=== PATIENT | male | born 1970 | race Caucasian/White ===

== ENCOUNTER 2016-06-19 23:19 | Emergency (ER) | payer SELFPAY ==
[~2016-06-19] VITALS: Ht 180.3 cm; Wt 105.0 kg
[2016-06-19 23:21] VITALS: BP 179/99; PULSE 98; RESP 16; TEMP 98.1; O2SAT 96
[2016-06-20] MEDS ORDERED: MEDR4PAK PO
[2016-06-20] MEDS ORDERED: DEXAMETHASONE SOD PHOS 4 MG/ML VIAL IM ONE
--- NOTE | 2016-06-20 | PD ---
HPI Chief Complaint: Pain: Acute or Chronic Time Seen by Provider: 23:55 Travel History International Travel<30 days: No Contact w/Intl Traveler<30days: No Traveled to known affect area: No History of Present Illness HPI Patient comes in complaining of flareup of chronic pain. Patient states that he normally has pain in his back, neck, and feet was told he has neuropathy. Patient states he is on gabapentin, Lortab, and Valium for this. Patient states approximately 2 hours ago started having a burning sensation in his right lower back and radiates down his leg is different from his normal pain. Patient denies any fevers, IV drug use, trauma, loss of bowel or bladder, or new numbness or tingling anywhere. Patient states he is supposed to see his pain management doctor on Tuesday who is going to switch him to a long-acting pain medication. Patient is requesting Lyrica as he states he's had that before and that seemed to help better than anything else. Patient does report that he applied ice prior to coming emergency department with little to no improvement of his symptoms. Pain is worse with certain movement. PFSH Past Medical History Cardiovascular Problems: Yes ([place]) Musculoskeletal: Yes (back pain) Neurologic: Yes (neuropathy) Social History Alcohol Use: No Tobacco Use: No Substance Use: No Allergies-Medications (Allergen,Severity, Reaction): Coded Allergies: Erythromycin (Verified Allergy, Severe, 06/19/16) Ibuprofen (Verified Allergy, Severe, 06/19/16) Midrin (Verified Allergy, Severe, 06/19/16) Norflex (Verified Allergy, Severe, 06/19/16) Valium (Verified Allergy, Unknown, 06/19/16) Reported Meds & Prescriptions Reported Meds & Active Scripts Active Medrol Dosepak (Methylprednisolone) 4 Mg Dspk 4 Mg PO DIRECTED Per Pharmacist direction Review of Systems Except as stated in HPI: all other systems reviewed are Neg Physical Exam Narrative GENERAL: Well-developed, overly nourished, in no acute distress, and non-ill appearing. SKIN: Warm and dry. HEAD: Atraumatic. Normocephalic. EYES: Pupils equal and round. EOMI. No scleral icterus. No injection or drainage. ENT: No nasal bleeding or discharge. Mucous membranes pink and moist. NECK: Trachea midline. Supple. No nuclear rigidity. CARDIOVASCULAR: Dorsal pulses 2+ intact and equal bilaterally. Capillary refill less than 2 seconds. RESPIRATORY: No accessory muscle use. No respiratory distress. GASTROINTESTINAL: Abdomen soft, non-tender, nondistended. Hepatic and splenic margins not palpable. No pulsatile mass. MUSCULOSKELETAL: No obvious deformities. No clubbing. No cyanosis. No edema. Full range of motion. There is no tenderness crepitus over midline of the lumbar spine. Patient reports tenderness to palpation near the right SI joint. Straight leg test negative bilaterally. Hip: FROM and equal BL with passive flexion, extension, Abduction, Adduction, and internal/external rotation. Pulses equal BL distal to injury. Capillary refill less than 2 seconds distal to injury and equal BL. FROM distal to injury and equal BL. Strength distal to injury equal BL. NV intact distal to injury and equal BL. Plantar flexion and dorsal flexion equal BL. Dorsal pulses equal BL. NEUROLOGICAL: Awake and alert. No obvious cranial nerve deficits. Motor grossly within normal limits. Normal speech. PSYCHIATRIC: Appropriate mood and affect; insight and judgment normal. Data Data Last Documented VS Vital Signs Date Time Temp Pulse Resp B/P Pulse Ox O2 Delivery O2 Flow Rate FiO2 06/19/16 23:21 98.1 98 16 179/99 96 Room Air Orders Dexamethasone Inj (Decadron Inj) (06/20/16 00:00) Ketorolac Inj (Toradol Inj) (06/20/16 00:45) MDM Medical Decision Making Medical Screen Exam Complete: Yes Emergency Medical Condition: Yes Differential Diagnosis Acute on chronic back pain, sciatica, neuropathy, contusion, strain, fracture, other Narrative Course The patient presented complaining of back pain with radiation down leg. There was no history of recent fall or trauma. There was no evidence to support genitourinary etiology. There is also no evidence to suggest vascular pathology such as AAA dissection. No fevers or other evidence to suspect infectious processes, abscess, osteomyelitis etc. The patients neurological exam is normal with normal motor and sensory. There is no saddle paresthesias reported and no bowel or bladder incontinence or retention. I suspect the pain is mechanical in nature with sciatica. Clinical suspicion, plan of care and management was discussed with the patient. The patient was instructed to follow up with their health care provider. The patient was also instructed to return if the pain worsened, changed, or developed weakness or bowel or bladder trouble. The patient agreed with plan. Patient in no obvious distress upon re-evaluation. Prior to discharge patient requested a shot of Toradol. Patient was given a shot of Toradol. Patient was asked if they wanted to speak to my attending, which the patient did not wish to do at this time. Any questions/concerns in reference to patient diagnosis/ condition discussed and clarified prior to patient's discharge. Reinforced sheer importance of close follow up with patient's primary physician or primary care clinic. Instructed patient to return to ED immediately, if symptoms return/ worsen. Pt showed understanding of above instructions. Further instructions and recommendations were detailed in discharge paperwork. Pt ambulated without difficulty out of ED at discharge. Diagnosis Primary Impression: Sciatica of right side Patient Instructions: General Instructions, Sciatica (ED) Additional Instructions: Follow-up with your primary care physician and pain management doctor this week for reevaluation. Take all medication as prescribed. Return to the emergency department if symptoms get worse. Med/Other Pt SpecificInfo: Prescription(s) given Scripts Methylprednisolone Dosepak (Medrol Dosepak)4 Mg Dspk4 Mg PO DIRECTED #1 DSPK Ref 0 Per Pharmacist direction Prov:Jacob Samuels MD 06/20/16 Disposition: 01 DISCHARGE HOME Condition: Stable Asif Lopez Jun 20, 2016 00:00
[2016-06-20] MEDS ORDERED: KETOROLAC TROMETHAMINE 60 MG/2 ML (IM) VIAL IM ONE (00:45)
== END 2016-06-20 01:00 | disposition home or self-care (01) ==
LOC: NEPB 23:19
DX: M54.31 Sciatica, right side (principal); G89.29 Other chronic pain; M54.9 Dorsalgia, unspecified; G62.9 Polyneuropathy, unspecified
CPT/HCPCS: 96372; 99283; J1100; J1885

== ENCOUNTER 2016-07-16 01:30 | Emergency (ER) | payer SELFPAY ==
[~2016-07-16] VITALS: Ht 180.3 cm; Wt 102.0 kg
[~2016-07-16 01:30] MED LIST: MEDR4PAK PO
[2016-07-16 01:32] VITALS: BP 165/100; PULSE 93; RESP 16; TEMP 98.6; O2SAT 98
[2016-07-16] MEDS ORDERED: LYRI150C PO (01:58)
--- NOTE | 2016-07-16 02:03 | PD ---
HPI Chief Complaint: Pain: Acute or Chronic Time Seen by Provider: 01:50 Travel History International Travel<30 days: No Contact w/Intl Traveler<30days: No Traveled to known affect area: No History of Present Illness HPI 45-year-old male presents for evaluation of lower back pain. He reports a history of chronic lower back pain with sciatica symptoms. He reports occasional flareups of this pain. He reports that today he was unloading a [employer] truck and now he has increased pain in his left lower buttocks that radiates down the left leg. It is a sharp shooting pain that is worse with movement. Denies any abdominal pain, nausea or vomiting, flank pain, testicular or scrotal pain, bowel or bladder incontinence, saddle anesthesia. Previously the patient was seeing a pain management physician, Dr. Kirby, and most recently was on a regimen of gabapentin, hydrocodone acetaminophen and diazepam however he reports that he was let go from his care last month. He reports that in the past he has used Lyrica which seemed to be the most effective thing for this sort of pain. He has no other complaints. PFSH Past Medical History Hx Anticoagulant Therapy: Yes ([place]) Cardiovascular Problems: Yes ([place]) Diminished Hearing: No Musculoskeletal: Yes (back pain) Neurologic: Yes (neuropathy) Social History Alcohol Use: No Tobacco Use: No Substance Use: No Allergies-Medications (Allergen,Severity, Reaction): Coded Allergies: Erythromycin (Verified Allergy, Severe, 07/16/16) Ibuprofen (Verified Allergy, Severe, 07/16/16) Midrin (Verified Allergy, Severe, 07/16/16) Norflex (Verified Allergy, Severe, 07/16/16) Flexeril (Verified Allergy, Intermediate, PASS OUT, 07/16/16) Valium (Verified Allergy, Unknown, 07/16/16) Reported Meds & Prescriptions Reported Meds & Active Scripts Active Lyrica (Pregabalin) 150 Mg Cap 150 Mg PO BID 7 Days Medrol Dosepak (Methylprednisolone) 4 Mg Dspk 4 Mg PO DIRECTED Per Pharmacist direction Review of Systems Except as stated in HPI: all other systems reviewed are Neg Physical Exam Narrative GENERAL: Well-developed well-nourished male in no acute distress SKIN: Warm and dry. HEAD: Atraumatic. Normocephalic. EYES: Pupils equal and round. No scleral icterus. No injection or drainage. ENT: No nasal bleeding or discharge. Mucous membranes pink and moist. NECK: Trachea midline. No JVD. CARDIOVASCULAR: Regular rate and rhythm. No murmur appreciated. RESPIRATORY: No accessory muscle use. Clear to auscultation. Breath sounds equal bilaterally. GASTROINTESTINAL: Abdomen soft, non-tender, nondistended. Hepatic and splenic margins not palpable. MUSCULOSKELETAL: No obvious deformities. No tenderness to palpation along the thoracic or lumbar midline spine. Some tenderness to palpation to the left sacroiliac joint. Positive straight leg raise left leg. No lower extremity edema, distal pulses intact. NEUROLOGICAL: Awake and alert. No obvious cranial nerve deficits. Motor grossly within normal limits. Normal speech. Data Data Last Documented VS Vital Signs Date Time Temp Pulse Resp B/P Pulse Ox O2 Delivery O2 Flow Rate FiO2 07/16/16 02:00 14 07/16/16 01:32 98.6 93 165/100 98 Room Air MDM Medical Decision Making Medical Screen Exam Complete: Yes Emergency Medical Condition: Yes Medical Record Reviewed: Yes Differential Diagnosis Peripheral neuropathy, lumbar radiculopathy, piriformis syndrome, plexopathy, DVT, arterial occlusion, peripheral vascular disease Narrative Course 45-year-old male with chronic lower back pain with sciatic symptoms presents with an acute exacerbation after unloading a [employer] truck. Examination reveals no lower extremity weakness, history and examination are consistent with chronic lumbosacral radiculopathy. He reports that one time he was prescribed Lyrica which seemed to help more than any other type of medication for this sort of pain and so he'll be given a seven-day course of Lyrica and encouraged to establish care with a new dip painter. Diagnosis Primary Impression: Lumbosacral radiculopathy Additional Instructions: Follow-up with pain management. Avoid strenuous activity or heavy lifting. Return for any emergent medical conditions. Med/Other Pt SpecificInfo: Prescription(s) given Scripts Pregabalin (Lyrica)150 Mg [id number] Mg PO BID 7 Days Ref 0 Prov:Chirag Vo MD 07/16/16 Disposition: 01 DISCHARGE HOME Condition: Stable Jaylen Kurtz Jul 16, 2016 02:03
[2016-07-16] MEDS ORDERED: PREGABALIN 100 MG CAP PO ONE (02:15)
== END 2016-07-16 02:23 | disposition home or self-care (01) ==
LOC: NEPK 01:30
DX: M54.17 Radiculopathy, lumbosacral region (principal); I10 Essential (primary) hypertension; Z79.82 Long term (current) use of aspirin; Z87.39 Personal history of other diseases of the musculoskeletal system and connective tissue; Z86.69 Personal history of other diseases of the nervous system and sense organs; X50.0XXA Overexertion from strenuous movement or load, initial encounter
CPT/HCPCS: 99283

== ENCOUNTER 2016-08-09 20:54 | Emergency (ER) | payer SELFPAY ==
[~2016-08-09] VITALS: Ht 180.3 cm; Wt 106.0 kg
[~2016-08-09 20:54] MED LIST changes: +LYRI150C PO
[2016-08-09 20:57] VITALS: BP 177/106; PULSE 124; RESP 22; TEMP 98; O2SAT 98
== END 2016-08-09 21:30 | disposition left against medical advice (07) ==
LOC: NED 20:54
DX: Z53.21 Procedure and treatment not carried out due to patient leaving prior to being seen by health care provider (principal)
CPT/HCPCS: 99281

== ENCOUNTER 2016-08-30 13:59 | Emergency (ER) | payer SELFPAY ==
[~2016-08-30] VITALS: Ht 180.3 cm; Wt 105.0 kg
[2016-08-30 14:00] VITALS: BP 176/106; PULSE 86; RESP 16; TEMP 97.8; O2SAT 98
[2016-08-30] MEDS ORDERED: DIAZEPAM 2 MG TAB PO ONE (15:15)
[2016-08-30] MEDS ORDERED: ACETAMINOPHEN/HYDROcodone 325 MG/7.5 MG TAB PO ONE (15:15)
--- NOTE | 2016-08-30 15:25 | PD ---
HPI Chief Complaint: Back/ Neck Pain or Injury Time Seen by Provider: 15:16 Travel History International Travel<30 days: No Contact w/Intl Traveler<30days: No Traveled to known affect area: No History of Present Illness HPI 45-year-old male with a history of chronic low back pain, COPD, CAD presents to the emergency department for evaluation of lower back pain radiating to the left lower back and left leg that began about one hour ago. Patient states that he was moving from a sitting to a standing position at a restaurant when this pain began. States he felt a sudden spasm in his lower back and a "pop." States that he has had sharp pain in his lower back radiating to his left leg just began. States that he has a history of low back pain but that this pain is a little higher than his typical lower back pain. He has a history of degenerative disc disease and has previously been prescribed Lortab and Valium for his low back pain. He denies any fever, chills, nausea, vomiting, numbness or tingling, saddle anesthesia, bowel or bladder contents, history of IV drug use. No other complaints. PFSH Past Medical History Hx Anticoagulant Therapy: Yes ([place]) Cardiovascular Problems: Yes ([place]) Diminished Hearing: No Musculoskeletal: Yes (back pain) Neurologic: Yes (neuropathy) Social History Alcohol Use: No Tobacco Use: Yes Substance Use: No Allergies-Medications (Allergen,Severity, Reaction): Coded Allergies: Erythromycin (Verified Allergy, Severe, 08/09/16) Ibuprofen (Verified Allergy, Severe, 08/09/16) Midrin (Verified Allergy, Severe, 08/09/16) Norflex (Verified Allergy, Severe, 08/09/16) Flexeril (Verified Allergy, Intermediate, PASS OUT, 08/09/16) Reported Meds & Prescriptions Reported Meds & Active Scripts Active Lyrica (Pregabalin) 150 Mg Cap 150 Mg PO BID 7 Days Medrol Dosepak (Methylprednisolone) 4 Mg Dspk 4 Mg PO DIRECTED Per Pharmacist direction Review of Systems Except as stated in HPI: all other systems reviewed are Neg Physical Exam Narrative GENERAL: Well-nourished and well-developed pleasant male patient in no acute distress. SKIN: Warm and dry. HEAD: Normocephalic and atraumatic. EYES: No injection, drainage, or hyphema noted. PERRLA. EOMI. ENT: No nasal drainage noted. Oropharynx is clear. NECK: Supple and the trachea is midline. CARDIOVASCULAR: Regular rate and rhythm. RESPIRATORY: Breath sounds are equal bilaterally with no accessory muscle use, wheezing, rhonchi, or crackles. GASTROINTESTINAL: Abdomen is soft, non-tender, and nondistended. MUSCULOSKELETAL: No obvious deformities, swelling, cyanosis, or ecchymosis is present throughout the upper and lower extremities. Patient has full range of motion without any signs of neurovascular compromise. Strength 5/5 upper and lower extremities and equal bilaterally. Left leg SLR positive. BACK: Tenderness to palpation of lumbar spine and left lumbar paraspinal muscles. Nontender without any obvious deformities, bony point tenderness, or crepitus noted throughout the thoracic and lumbar vertebrae. NEUROLOGICAL: Awake, alert, and oriented. Normal speech and gait. Cranial nerves are grossly intact. Data Data Last Documented VS Vital Signs Date Time Temp Pulse Resp B/P Pulse Ox O2 Delivery O2 Flow Rate FiO2 08/30/16 14:00 97.8 86 16 176/106 98 Orders Acetamin-Hydrocod 325-7.5 Mg (Orange 7.5 (08/30/16 15:15) Diazepam (Valium) (08/30/16 15:15) Ketorolac Inj (Toradol Inj) (08/30/16 16:30) MDM Medical Decision Making Medical Screen Exam Complete: Yes Emergency Medical Condition: Yes Differential Diagnosis Chronic low back pain versus acute on chronic back pain versus sciatica versus lumbar radiculopathy versus muscle strain versus muscle spasm Narrative Course 45-year-old male presents to the emergency department for evaluation of low back pain radiating to left leg. Patient is afebrile, vital signs are stable. No traumatic injury to his lower back. He has a history of chronic low back pain with radiculopathy. No red flag signs or symptoms. Patient is administered Lortab 7. 5325 milligrams and Valium 2 mg orally here in the ED. I did look the patient up on [place] prescription drug monitoring program which shows he has received 45 prescriptions for controlled substances from 28 different providers over the last year. This is concerning for drug-seeking behavior. I did discuss this with the patient and family. I did discuss with him that we do not manage chronic pain from the emergency department. He does have multiple allergies to medications however after discussion with my attending physician I will give him Toradol 60 mg IM here in the ED and prescribe him naproxen and baclofen. I discussed the case with my attending physician Dr. Vo who is aware of the patients history, physical examination findings, and treatment plan. Diagnosis Primary Impression: Low back pain Qualified Code: M54.42 - Left-sided low back pain with left-sided sciatica, unspecified chronicity Referrals: Pain Management Primary Care Physician Patient Instructions: General Instructions Additional Instructions: Apply ice or heat to help alleviate symptoms. Take medications as prescribed with food and a full glass of water. Follow-up with your Primary Care and Pain management physician. Return to the ED for any acute worsening of symptoms. Med/Other Pt SpecificInfo: Prescription(s) given Scripts Naproxen 500 Mg [id number] Mg PO BID 7 Days Ref 0 Prov:Chirag Vo MD 08/30/16 Baclofen 20 Mg Tab20 Mg PO TID 5 Days Ref 0 Prov:Chirag Vo MD 08/30/16 Disposition: 01 DISCHARGE HOME Condition: Stable Carole Handy August 30, 2016 15:25
[2016-08-30] MEDS ORDERED: BACL20TA PO (16:21)
[2016-08-30] MEDS ORDERED: NAPR500T PO (16:21)
[2016-08-30] MEDS ORDERED: KETOROLAC TROMETHAMINE 60 MG/2 ML (IM) VIAL IM ONE (16:30)
[2016-08-30 16:42] VITALS: BP 154/75
== END 2016-08-30 16:43 | disposition home or self-care (01) ==
LOC: NEPD 13:59
DX: M54.42 Lumbago with sciatica, left side (principal); J44.9 Chronic obstructive pulmonary disease, unspecified; I25.10 Atherosclerotic heart disease of native coronary artery without angina pectoris; I25.2 Old myocardial infarction; Z72.0 Tobacco use; Z79.01 Long term (current) use of anticoagulants
CPT/HCPCS: 99283

== ENCOUNTER 2016-10-17 09:45 | Emergency (ER) | payer SELFPAY ==
[~2016-10-17 09:45] MED LIST changes: +BACL20TA PO; +NAPR500T PO
[2016-10-17 09:49] VITALS: BP 200/131; PULSE 124; RESP 24; TEMP 97.7; O2SAT 95
[2016-10-17] MEDS ORDERED: METO50TA PO (10:01)
[2016-10-17] MEDS ORDERED: ALBU1AER5 INH (10:01)
[2016-10-17] MEDS ORDERED: LISI10TA3 PO (10:01)
[2016-10-17] MEDS ORDERED: SIMV20TA PO (10:01)
[2016-10-17] MEDS ORDERED: FLUT1INH INH (10:01)
[2016-10-17] MEDS ORDERED: ASPI81CH CHEW (10:01)
[2016-10-17 10:12] VITALS: BP 161/100; PULSE 105; RESP 19; TEMP 99.5; O2SAT 95
--- NOTE | 2016-10-17 10:12 | PD ---
HPI Chief Complaint: GI Complaint Time Seen by Provider: 09:58 Travel History International Travel<30 days: No Contact w/Intl Traveler<30days: No Traveled to known affect area: No History of Present Illness HPI This patient complains of nausea and vomiting. Duration 12 hours. Severity is moderate. He's also having diarrhea one episode. No fever or injury. He complains of headache. Blood pressure 201 systolic at initial check. No alleviating factors. He ate at [facility] yesterday and thinks he may have food poisoning. No other ill contacts. PFSH Past Medical History Hx Anticoagulant Therapy: Yes (asa) Cardiovascular Problems: Yes ([place]) Diminished Hearing: No Musculoskeletal: Yes (back pain) Neurologic: Yes (neuropathy) Social History Alcohol Use: No Tobacco Use: Yes Substance Use: No Allergies-Medications (Allergen,Severity, Reaction): Coded Allergies: Cortisone (Verified Allergy, Severe, Swelling, 10/17/16) Erythromycin (Verified Allergy, Severe, 08/09/16) Ibuprofen (Verified Allergy, Severe, 08/09/16) Midrin (Verified Allergy, Severe, 08/09/16) Norflex (Verified Allergy, Severe, 08/09/16) Flexeril (Verified Allergy, Intermediate, PASS OUT, 08/09/16) Reported Meds & Prescriptions Reported Meds & Active Scripts Active Naproxen 500 Mg Tab 500 Mg PO BID 7 Days Baclofen 20 Mg Tab 20 Mg PO TID 5 Days Lyrica (Pregabalin) 150 Mg Cap 150 Mg PO BID 7 Days Medrol Dosepak (Methylprednisolone) 4 Mg Dspk 4 Mg PO DIRECTED Per Pharmacist direction Reported Breo Ellipta Inh (Fluticasone/Vilanterol) 100-25 Mcg/Act Inh 1 Puff INH DAILY Use daily at the same time. Proair Respiclick Inh (Albuterol Sulfate) 90 Mcg/Act Aerp 1 Puff INH Q4H PRN Aspirin 81 Mg Chew 81 Mg CHEW DAILY Simvastatin 20 Mg Tab 20 Mg PO DAILY Lisinopril 10 Mg Tab 10 Mg PO BID Metoprolol Tartrate 50 Mg Tab 50 Mg PO BID Review of Systems General / Constitutional: No: Fever Eyes: No: Visual changes HENT: Positive: Headaches Cardiovascular: No: Chest Pain or Discomfort Respiratory: No: Shortness of Breath Gastrointestinal: Positive: Nausea, Vomiting, Diarrhea, No: Abdominal Pain Genitourinary: No: Dysuria Musculoskeletal: No: Pain Skin: No Rash Neurologic: Positive: Headache, No: Weakness Psychiatric: No: Depression Endocrine: No: Polydipsia Hematologic/Lymphatic: No: Easy Bruising Physical Exam Narrative GENERAL: Well-nourished, well-developed patient with active vomiting . SKIN: Focused skin assessment reveals no rash and nodules. Skin is Warm and dry. HEAD: Atraumatic. Normocephalic. EYES: Pupils equal and round. No scleral icterus. No injection or drainage. ENT: No nasal bleeding or discharge. Mucous membranes pink and moist. NECK: Trachea midline. No JVD. CARDIOVASCULAR: Regular rate and rhythm. No murmur appreciated. RESPIRATORY: No accessory muscle use. Clear to auscultation. Breath sounds equal bilaterally. GASTROINTESTINAL: Abdomen soft, non-tender, nondistended. Hepatic and splenic margins not palpable. MUSCULOSKELETAL: No obvious deformities. No clubbing. No cyanosis. No edema. NEUROLOGICAL: Awake and alert. No obvious cranial nerve deficits. Motor grossly within normal limits. Normal speech. PSYCHIATRIC: Appropriate mood and affect; insight and judgment normal. Data Data Last Documented VS Vital Signs Date Time Temp Pulse Resp B/P Pulse Ox O2 Delivery O2 Flow Rate FiO2 10/17/16 11:26 94 140/86 10/17/16 10:12 99.5 19 95 Room Air Orders Iv Access Insert/Monitor (10/17/16 10:04) Complete Blood Count With Diff (10/17/16 10:04) Basic Metabolic Panel (Bmp) (10/17/16 10:04) Ondansetron Inj (Zofran Inj) (10/17/16 10:15) Promethazine Inj (Phenergan Inj) (10/17/16 10:15) Sodium Chlor 0.9% 1000 Ml Inj (Ns 1000 M (10/17/16 10:15) Ct Brain W/O Iv Contrast(Rout) (10/17/16 ) Labs Laboratory Tests Test 10/17/16 10:17 White Blood Count 9.6 TH/MM3 Red Blood Count 5.70 MIL/MM3 Hemoglobin 17.4 GM/DL Hematocrit 50.1 % Mean Corpuscular Volume 87.9 FL Mean Corpuscular Hemoglobin 30.5 PG Mean Corpuscular Hemoglobin 34.7 % Concent Red Cell Distribution Width 14.5 % Platelet Count 119 TH/MM3 Mean Platelet Volume 9.5 FL Neutrophils (%) (Auto) 84.7 % Lymphocytes (%) (Auto) 6.3 % Monocytes (%) (Auto) 7.0 % Eosinophils (%) (Auto) 1.6 % Basophils (%) (Auto) 0.4 % Neutrophils # (Auto) 8.1 TH/MM3 Lymphocytes # (Auto) 0.6 TH/MM3 Monocytes # (Auto) 0.7 TH/MM3 Eosinophils # (Auto) 0.2 TH/MM3 Basophils # (Auto) 0.0 TH/MM3 CBC Comment DIFF FINAL Differential Comment Sodium Level 139 MEQ/L Potassium Level 3.8 MEQ/L Chloride Level 107 MEQ/L Carbon Dioxide Level 25.1 MEQ/L Anion Gap 7 MEQ/L Blood Urea Nitrogen 15 MG/DL Creatinine 0.91 MG/DL Estimat Glomerular Filtration 91 ML/MIN Rate Random Glucose 110 MG/DL Calcium Level 9.3 MG/DL MDM Medical Decision Making Medical Screen Exam Complete: Yes Emergency Medical Condition: Yes Medical Record Reviewed: Yes Differential Diagnosis Gastroenteritis, food poisoning, colitis, medication withdrawal Narrative Course I have reviewed the patient's electronic medical record. Patient was here August 30, 2016. It was noted that time that he has filled excessive amounts of controlled substance prescriptions by 28 different providers in one years time. IV placed I gave him IV Zofran and IM Phenergan and 1 L normal saline IV Blood pressure will be reassessed. Pressure has come down to 160 systolic without treatment CBC is normal Metabolic profile is normal Brain CT is normal On recheck the patient has asleep in the bed. He is stable for outpatient follow-up. I wrote him some Zofran. I expect gradual resolution of symptoms. Diagnosis Primary Impression: Nausea vomiting and diarrhea Additional Impressions: Hypertension, accelerated Headache Qualified Code: R51 - Acute nonintractable headache, unspecified headache type Additional Instructions: The patient was advised to follow up with their physician and return if they worsen. I have recommended clear liquids for 24 hours, then gradually advance as tolerated. Med/Other Pt SpecificInfo: Prescription(s) given Disposition: DISCHARGE HOME Condition: Stable Arnel Wiley MD Oct 17, 2016 10:12
[2016-10-17] MEDS ORDERED: ONDANSETRON HCL 4 MG/2 ML VIAL IV ONE (10:15)
[2016-10-17] MEDS ORDERED: SODIUM CHLOR 0.9% 1000 ML INJ 1,000 ML IV ONE (10:15)
[2016-10-17] MEDS ORDERED: PROMETHAZINE INJ 25 MG/ML VIAL IM ONE (10:15)
--- NOTE | 2016-10-17 10:34 | RADRPT ---
EXAM DATE/TIME: 10/17/2016 10:24 [facility] COMPARISON: No previous studies available for comparison. INDICATIONS : Cephalgia today. RADIATION DOSE: 69.15 CTDIvol (mGy) MEDICAL HISTORY : Stroke. Cardiovascular disease SURGICAL HISTORY : None. ENCOUNTER: Initial ACUITY: 1 day PAIN SCALE: 8/10 LOCATION: Bilateral head TECHNIQUE: Multiple contiguous axial images were obtained of the head. Using automated exposure control and adj ustment of the mA and/or kV according to patient size, radiation dose was kept as low as reasonably a chievable to obtain optimal diagnostic quality images. DICOM format image data is available electro nically for review and comparison. FINDINGS: CEREBRUM: The ventricles are normal for age. No evidence of midline shift, mass lesion, hemorrhage or acute in farction. No extra-axial fluid collections are seen. POSTERIOR FOSSA: The cerebellum and brainstem are intact. The 4th ventricle is midline. The cerebellopontine angle i s unremarkable. EXTRACRANIAL: The visualized portion of the orbits is intact. SKULL: The calvaria is intact. No evidence of skull fracture. CONCLUSION: Normal examination. Chirag Obrien MD on October 17, 2016 at 10:32 Board Certified Radiologist. This report was verified electronically.
[2016-10-17 10:39] LABS: AUTOMATED NEUTROPHIL # 8.1 TH/MM3 (1.8-7.7); BASOPHIL % 0.4 % (0.0-2.0); EOSINOPHIL # 0.2 TH/MM3 (0-0.4); EOSINOPHIL % 1.6 % (0.0-4.0); HEMATOCRIT 50.1 % (39.0-51.0); HEMO FLAGS DIFF FINAL; LYMPH % 6.3 % (9.0-44.0); LYMPHOCYTE # 0.6 TH/MM3 (1.0-4.8); MEAN CELL VOLUME 87.9 FL (80.0-100.0); MEAN CORPUSCULAR HEMOGLOBIN 30.5 PG (27.0-34.0); MEAN CORPUSCULAR HGB CONC 34.7 % (32.0-36.0); NEUT % 84.7 % (16.0-70.0); PLATELET COUNT 119 TH/MM3 (150-450); RED CELL DISTRIBUTION WIDTH 14.5 % (11.6-17.2); WHITE BLOOD COUNT 9.6 TH/MM3 (4.0-11.0)
[2016-10-17 10:56] LABS: BICARBONATE 25.1 MEQ/L (21.0-32.0); POTASSIUM 3.8 MEQ/L (3.5-5.1)
[2016-10-17 11:26] VITALS: BP 140/86; PULSE 94
[2016-10-17] MEDS ORDERED: ZOFR4TAB PO (11:42)
== END 2016-10-17 12:16 | disposition home or self-care (01) ==
LOC: NEPD 09:45
DX: R11.2 Nausea with vomiting, unspecified (principal); R19.7 Diarrhea, unspecified; R51 Headache; I10 Essential (primary) hypertension; G62.9 Polyneuropathy, unspecified; I25.2 Old myocardial infarction; Z72.0 Tobacco use; Z79.899 Other long term (current) drug therapy; Z79.82 Long term (current) use of aspirin
CPT/HCPCS: 70450; 80048; 85025; 96361; 96372; 96374; 99285; J2405; J2550; J7030

== ENCOUNTER 2016-11-21 06:02 | Emergency (ER) | payer BC ==
[~2016-11-21] VITALS: Ht 180.3 cm; Wt 122.5 kg
[~2016-11-21 06:02] MED LIST changes: +ALBU1AER5 INH; +ASPI81CH CHEW; +FLUT1INH INH; +LISI10TA3 PO; +METO50TA PO; +SIMV20TA PO; +ZOFR4TAB PO
[2016-11-21 06:04] VITALS: BP 230/130; PULSE 97; RESP 20; TEMP 98.6; O2SAT 96
[2016-11-21] MEDS ORDERED: SODIUM CHLOR 0.9% 1000 ML INJ 1,000 ML IV SCH (06:36)
[2016-11-21] MEDS ORDERED: ONDANSETRON HCL 4 MG/2 ML VIAL ONE (06:37)
--- NOTE | 2016-11-21 06:38 | PD ---
HPI Chief Complaint: Abdominal Pain Time Seen by Provider: 06:12 Travel History International Travel<30 days: No Contact w/Intl Traveler<30days: No Traveled to known affect area: No History of Present Illness HPI Patient is a 45-year-old male presents emergency department for the second time this week for evaluation of abdominal pain nausea and vomiting. Patient states been going on and off for the past week cramping in nature just left of his belly button. He states the pain became severe approximately an hour prior to presentation the emergency department. He states he can't keep anything down is been having diarrhea but denies any fevers. His last workup patient basic labs and also had hypertension and had a CAT scan of his head which was negative and he was discharged. Has not followed up with a primary care physician since. PFSH Past Medical History Hx Anticoagulant Therapy: Yes (asa) Cardiac Catheterization: Yes (rca stent) Cardiovascular Problems: Yes (MIx3, stent x1, CAD, HTN) COPD: Yes Diminished Hearing: No Musculoskeletal: Yes (back pain) Neurologic: Yes (neuropathy) Respiratory: Yes (COPD) Social History Alcohol Use: No Tobacco Use: Yes Substance Use: No Allergies-Medications (Allergen,Severity, Reaction): Coded Allergies: Cortisone (Verified Allergy, Severe, Swelling, 10/17/16) Erythromycin (Verified Allergy, Severe, 08/09/16) Ibuprofen (Verified Allergy, Severe, 08/09/16) Midrin (Verified Allergy, Severe, 08/09/16) Norflex (Verified Allergy, Severe, 08/09/16) Flexeril (Verified Allergy, Intermediate, PASS OUT, 08/09/16) Reported Meds & Prescriptions Reported Meds & Active Scripts Active Zofran (Ondansetron HCl) 4 Mg Tab 4 Mg PO Q6HR PRN Naproxen 500 Mg Tab 500 Mg PO BID 7 Days Baclofen 20 Mg Tab 20 Mg PO TID 5 Days Lyrica (Pregabalin) 150 Mg Cap 150 Mg PO BID 7 Days Medrol Dosepak (Methylprednisolone) 4 Mg Dspk 4 Mg PO DIRECTED Per Pharmacist direction Reported Breo Ellipta Inh (Fluticasone/Vilanterol) 100-25 Mcg/Act Inh 1 Puff INH DAILY Use daily at the same time. Proair Respiclick Inh (Albuterol Sulfate) 90 Mcg/Act Aerp 1 Puff INH Q4H PRN Aspirin 81 Mg Chew 81 Mg CHEW DAILY Simvastatin 20 Mg Tab 20 Mg PO DAILY Lisinopril 10 Mg Tab 10 Mg PO BID Metoprolol Tartrate 50 Mg Tab 50 Mg PO BID Review of Systems Except as stated in HPI: all other systems reviewed are Neg Physical Exam Narrative GENERAL: Well-developed well-nourished, somewhat eccentric but in no obvious distress. SKIN: Focused skin assessment warm/dry. HEAD: Atraumatic. Normocephalic. EYES: Pupils equal and round. No scleral icterus. No injection or drainage. ENT: No nasal bleeding or discharge. Mucous membranes pink and moist. NECK: Trachea midline. No JVD. CARDIOVASCULAR: Regular rate and rhythm. No murmur appreciated. RESPIRATORY: No accessory muscle use. Clear to auscultation. Breath sounds equal bilaterally. GASTROINTESTINAL: Abdomen soft, non-tender, nondistended. Obese. No rebound no percussive tenderness, no CVA tenderness. Hepatic and splenic margins not palpable. MUSCULOSKELETAL: No obvious deformities. No clubbing. No cyanosis. No edema. NEUROLOGICAL: Awake and alert. No obvious cranial nerve deficits. Motor grossly within normal limits. Normal speech. PSYCHIATRIC: Appropriate mood and affect; insight and judgment normal. Data Data Last Documented VS Vital Signs Date Time Temp Pulse Resp B/P Pulse Ox O2 Delivery O2 Flow Rate FiO2 11/21/16 06:12 18 11/21/16 06:04 98.6 97 230/130 96 Room Air Orders Ondansetron Inj (Zofran Inj) (11/21/16 06:37) Complete Blood Count With Diff (11/21/16 06:36) Comprehensive Metabolic Panel (11/21/16 06:36) Lipase (11/21/16 06:36) Urinalysis - C+S If Indicated (11/21/16 06:36) Ct Abd/Pel W Iv Contrast(Rout) (11/21/16 06:36) Iv Access Insert/Monitor (11/21/16 06:36) Ecg Monitoring (11/21/16 06:36) Oximetry (11/21/16 06:36) Ondansetron Inj (Zofran Inj) (11/21/16 06:45) Sodium Chlor 0.9% 1000 Ml Inj (Ns 1000 M (11/21/16 06:36) Sodium Chloride 0.9% Flush (Ns Flush) (11/21/16 06:45) Morphine Inj (Morphine Inj) (11/21/16 06:45) MDM Medical Decision Making Medical Screen Exam Complete: Yes Emergency Medical Condition: Yes Differential Diagnosis Kidney stone, diverticulitis, gastritis, gastroenteritis. Narrative Course Patient roomed in the emergency department, will be given morphine and Zofran basic labs ordered a CAT scan of his abdomen. Patient will be discussed with Dr. Varela at shift change to follow-up basic labs and disposition properly. Maverick Garcia MD Nov 21, 2016 06:38
[2016-11-21] MEDS ORDERED: ONDANSETRON HCL 4 MG/2 ML VIAL IVP ONE (06:45)
[2016-11-21] MEDS ORDERED: MORPHINE SULFATE 4 MG/ML INJ IV PUSH ONE (06:45)
[2016-11-21] MEDS ORDERED: SODIUM CHLORIDE 0.9% FLUSH 10 ML FLUSH IV FLUSH PRN (06:45)
[2016-11-21] MEDS ORDERED: FURO1TAB60 PO (06:54)
[2016-11-21] MEDS ORDERED: POTA20TA5 PO (06:54)
[2016-11-21 06:56] LABS: AUTOMATED NEUTROPHIL # 5.4 TH/MM3 (1.8-7.7); BASOPHIL # 0.1 TH/MM3 (0-0.2); BASOPHIL % 0.8 % (0.0-2.0); EOSINOPHIL # 0.3 TH/MM3 (0-0.4); EOSINOPHIL % 3.5 % (0.0-4.0); HEMO FLAGS DIFF FINAL; LYMPH % 26.9 % (9.0-44.0); LYMPHOCYTE # 2.4 TH/MM3 (1.0-4.8); MEAN CELL VOLUME 90.7 FL (80.0-100.0); MEAN CORPUSCULAR HEMOGLOBIN 30.7 PG (27.0-34.0); MEAN CORPUSCULAR HGB CONC 33.8 % (32.0-36.0); NEUT % 60.8 % (16.0-70.0); PLATELET COUNT 146 TH/MM3 (150-450); RED CELL DISTRIBUTION WIDTH 14.2 % (11.6-17.2); WHITE BLOOD COUNT 8.8 TH/MM3 (4.0-11.0)
[2016-11-21 07:09] VITALS: BP 184/106; PULSE 76; RESP 20; O2SAT 96
[2016-11-21 07:20] VITALS: RESP 20
[2016-11-21 07:23] LABS: ALKALINE PHOSPHATASE 63 U/L (45-117); TOTAL BILIRUBIN ADULT 0.4 MG/DL (0.2-1.0)
[2016-11-21 07:43] LABS: ALT (GPT) 35 U/L (12-78); ANION GAP 7 MEQ/L (5-15); AST (GOT) 26 U/L (15-37); BICARBONATE 25.9 MEQ/L (21.0-32.0); BLOOD UREA NITROGEN 12 MG/DL (7-18); CHLORIDE 109 MEQ/L (98-107); GLOMERULAR FILTRATION RATE 93 ML/MIN (>89); POTASSIUM 4.1 MEQ/L (3.5-5.1); SODIUM (NA) 142 MEQ/L (136-145)
[2016-11-21 07:44] LABS: BLOOD, URINE NEG (NEG); COMMENT (UR) CULT NOT INDICATED; CULTURE IF INDICATED CULT NOT INDICATED; GLUCOSE,URINE NEG (NEG); KETONE, URINE NEG (NEG); MUCUS URINE FEW /lpf (OCC); NITRITE,URINE NEG (NEG); PH, URINE 5.5 (5.0-8.5); URINE COLOR YELLOW (YELLW/STRAW)
[2016-11-21] MEDS ORDERED: IOHEXOL 350 MG/ML 10 ML VIAL (for RAD DIAG) IV ONE (08:14)
[2016-11-21] MEDS: RESP: ALBUTEROL 2.5 MG/IPRATROPIUM 0.5 MG NEB (SCH) INH (08:17)
--- NOTE | 2016-11-21 08:22 | RADRPT ---
EXAM DATE/TIME: 11/21/2016 07:57 [facility] COMPARISON: No previous studies available for comparison. INDICATIONS : Abdominal pain x 3 days. Complains of nausea, vomiting and diarrhea. IV CONTRAST: 100 cc Omnipaque 350 (iohexol) IV ORAL CONTRAST: No oral contrast ingested. RADIATION DOSE: 4.71 CTDIvol (mGy) MEDICAL HISTORY : Cardiovascular disease. Chronic obstructive pulmonary disease. Myocardial infar ction. SURGICAL HISTORY : None. ENCOUNTER: Initial ACUITY: 3 days PAIN SCALE: 10/10 LOCATION: Bilateral abdomen TECHNIQUE: Volumetric scanning of the abdomen and pelvis was performed. Using automated exposure control and adjustment of the mA and/or kV according to patient size, radiation dose was kept as low as reasonably achievable to obtain optimal diagnostic quality images. DICOM format image data is av ailable electronically for review and comparison. FINDINGS: LOWER LUNGS: The visualized lower lungs are clear. LIVER: Homogeneous density without lesion. There is no dilation of the biliary tree. No calcifi ed gallstones. SPLEEN: Normal size without lesion. PANCREAS: Within normal limits. KIDNEYS: Normal in size and shape. There is no mass or hydronephrosis. There is a single tiny le ss than 1 mm nonobstructing left renal calculus. ADRENAL GLANDS: Within normal limits. VASCULAR: There is no aortic aneurysm. BOWEL/MESENTERY: No oral contrast was given limiting the sensitivity of the exam. The stomach, sm all bowel, and colon demonstrate no acute abnormality. There is no free intraperitoneal air or fluid . The appendix is unremarkable. ABDOMINAL WALL: Within normal limits. RETROPERITONEUM: There is no lymphadenopathy. BLADDER: No wall thickening or mass. REPRODUCTIVE: Within normal limits. INGUINAL: There is no lymphadenopathy or hernia. MUSCULOSKELETAL: Within normal limits for patient age. CONCLUSION: 1. Single tiny nonobstructing less than 1 mm left renal calculus. 2. Unremarkable bowel gas pattern with no inflammatory change or obstruction. The appendix is unremar kable. 3. The gallbladder is within normal limits. Bill Garcia MD on November 21, 2016 at 8:14 Board Certified Radiologist. This report was verified electronically.
[2016-11-21] MEDS ORDERED: ZOFR4TAB3 SL (08:38)
[2016-11-21] MEDS ORDERED: DICY10 PO (08:38)
--- NOTE | 2016-11-21 08:39 | PD ---
Physical Exam Date Seen by Provider: Nov 21, 2016 Time Seen by Provider: 07:00 Narrative Patient signed out to me by Dr. Garcia, please see previous notes for further details. Laboratory Tests Test 11/21/16 11/21/16 06:40 07:20 Platelet Count 146 TH/MM3 (150-450) Chloride Level 109 MEQ/L (98-107) Urine Mucus FEW /lpf (OCC) Last 24 hours Impressions Abdomen/Pelvis CT 11/21/16635 Signed Impressions: Service Date/Time: Monday, November 21, 2016 07:57 - CONCLUSION: 1. Single tiny nonobstructing less than 1 mm left renal calculus. 2. Unremarkable bowel gas pattern with no inflammatory change or obstruction. The appendix is unremarkable. 3. The gallbladder is within normal limits. Bill Garcia MD While in the ER, patient complained of wheezing, states that he has not had his nebulizer today, has history of COPD. On evaluation, he has bilateral wheezing and was given some DuoNeb's with some improvement symptoms. I have talked to the patient regarding his smoking has recommended smoking cessation in order to decrease episodes of COPD. CAT scan did not show any signs of acute intra- abdominal processes. Lab work was otherwise unremarkable. At this point, my plan would be to release him with symptomatic relief or pain and nausea and vomiting likely related to a gastroenteritis. We will also give him a short course of steroid medications due to his COPD exacerbation. Return for any worsening in symptoms as needed. The plan has discussed with him and he states understanding. Data Data Last Documented VS Vital Signs Date Time Temp Pulse Resp B/P Pulse Ox O2 Delivery O2 Flow Rate FiO2 11/21/16 07:20 20 11/21/16 07:09 76 184/106 96 Room Air 11/21/16 06:04 98.6 Orders Ondansetron Inj (Zofran Inj) (11/21/16 06:37) Complete Blood Count With Diff (11/21/16 06:36) Comprehensive Metabolic Panel (11/21/16 06:36) Lipase (11/21/16 06:36) Urinalysis - C+S If Indicated (11/21/16 06:36) Ct Abd/Pel W Iv Contrast(Rout) (11/21/16 06:36) Iv Access Insert/Monitor (11/21/16 06:36) Ecg Monitoring (11/21/16 06:36) Oximetry (11/21/16 06:36) Ondansetron Inj (Zofran Inj) (11/21/16 06:45) Sodium Chlor 0.9% 1000 Ml Inj (Ns 1000 M (11/21/16 06:36) Sodium Chloride 0.9% Flush (Ns Flush) (11/21/16 06:45) Morphine Inj (Morphine Inj) (11/21/16 06:45) Albuterol-Ipratropium Neb (Duoneb Neb) (11/21/16 07:15) Iohexol 350 Inj (Omnipaque 350 Inj) (11/21/16 08:14) Labs Laboratory Tests Test 11/21/16 11/21/16 06:40 07:20 White Blood Count 8.8 TH/MM3 Red Blood Count 5.40 MIL/MM3 Hemoglobin 16.6 GM/DL Hematocrit 49.0 % Mean Corpuscular Volume 90.7 FL Mean Corpuscular Hemoglobin 30.7 PG Mean Corpuscular Hemoglobin 33.8 % Concent Red Cell Distribution Width 14.2 % Platelet Count 146 TH/MM3 Mean Platelet Volume 9.4 FL Neutrophils (%) (Auto) 60.8 % Lymphocytes (%) (Auto) 26.9 % Monocytes (%) (Auto) 8.0 % Eosinophils (%) (Auto) 3.5 % Basophils (%) (Auto) 0.8 % Neutrophils # (Auto) 5.4 TH/MM3 Lymphocytes # (Auto) 2.4 TH/MM3 Monocytes # (Auto) 0.7 TH/MM3 Eosinophils # (Auto) 0.3 TH/MM3 Basophils # (Auto) 0.1 TH/MM3 CBC Comment DIFF FINAL Differential Comment Sodium Level 142 MEQ/L Potassium Level 4.1 MEQ/L Chloride Level 109 MEQ/L Carbon Dioxide Level 25.9 MEQ/L Anion Gap 7 MEQ/L Blood Urea Nitrogen 12 MG/DL Creatinine 0.89 MG/DL Estimat Glomerular Filtration 93 ML/MIN Rate Random Glucose 90 MG/DL Calcium Level 9.4 MG/DL Total Bilirubin 0.4 MG/DL Aspartate Amino Transf 26 U/L (AST/SGOT) Alanine Aminotransferase 35 U/L (ALT/SGPT) Alkaline Phosphatase 63 U/L Total Protein 7.1 GM/DL Albumin 3.9 GM/DL Lipase 212 U/L Urine Color YELLOW Urine Turbidity CLEAR Urine pH 5.5 Urine Specific [place] 1.025 Urine Protein NEG mg/dL Urine Glucose (UA) NEG mg/dL Urine Ketones NEG mg/dL Urine Occult Blood NEG Urine Nitrite NEG Urine Bilirubin NEG Urine Urobilinogen 2.0 MG/DL Urine Leukocyte Esterase NEG Urine RBC 1 /hpf Urine WBC 1 /hpf Urine Mucus FEW /lpf Microscopic Urinalysis Comment CULT NOT INDICATED MDM Medical Record Reviewed: Yes Supervised Visit with [facility]: No Diagnosis Primary Impression: Nausea vomiting and diarrhea Additional Impression: COPD exacerbation Med/Other Pt SpecificInfo: Prescription(s) given Scripts Ondansetron Odt (Zofran Odt)4 Mg Tab4 Mg SL Q6HR PRN (Nausea/Vomiting) #7 TAB Ref 0 Prov:August Parada MD 11/21/16 Dicyclomine (Bentyl)10 Mg Cap10 Mg PO TID PRN (Bowel Management) #15 CAP Ref 0 Prov:August Parada MD 11/21/16 Disposition: 01 DISCHARGE HOME Condition: Stable August Parada MD Nov 21, 2016 08:39
== END 2016-11-21 08:57 | disposition home or self-care (01) ==
LOC: NEPC 06:02
DX: N20.0 Calculus of kidney (principal); R19.7 Diarrhea, unspecified; J44.1 Chronic obstructive pulmonary disease with (acute) exacerbation; I25.10 Atherosclerotic heart disease of native coronary artery without angina pectoris; I10 Essential (primary) hypertension; Z72.0 Tobacco use
CPT/HCPCS: 74177; 80053; 81001; 83690; 85025; 94640; 94664; 96361; 96374; 99285; J2270; J2405; J7030; Q9967

== ENCOUNTER 2016-11-23 22:28 | Emergency (ER) | payer BC ==
[~2016-11-23 22:28] MED LIST changes: +DICY10 PO; +FURO1TAB60 PO; +POTA20TA5 PO; +ZOFR4TAB3 SL
[2016-11-23 22:31] VITALS: BP 178/104; PULSE 90; RESP 18; TEMP 97; O2SAT 97
[2016-11-24 00:32] VITALS: BP 166/72; PULSE 88; RESP 18; TEMP 97; O2SAT 97
--- NOTE | 2016-11-24 00:48 | PD ---
HPI Chief Complaint: Skin Problem Time Seen by Provider: 00:37 Travel History International Travel<30 days: No Contact w/Intl Traveler<30days: No Traveled to known affect area: No History of Present Illness HPI This is a 45-year-old male who presents for evaluation of bruising in the right forearm. The patient was seen here on November 21 for evaluation nausea, vomiting or diarrhea. During his ED course he had a 20-gauge IV inserted in the right antecubital region. He reports that they tried twice in his left forearm but were unsuccessful. He reports that since yesterday he has had bruising and pain to the IV insertion region. Pain is an aching pain that is worse with palpation. Denies any fevers or chills. He is on a baby aspirin. He has no other complaints at this time. PFSH Past Medical History Hx Anticoagulant Therapy: Yes (asa) Cardiac Catheterization: Yes (rca stent) Cardiovascular Problems: Yes (MIx3, stent x1, CAD, HTN) COPD: Yes Diminished Hearing: No Musculoskeletal: Yes (back pain) Neurologic: Yes (neuropathy) Respiratory: Yes (COPD) Social History Alcohol Use: No Tobacco Use: Yes Substance Use: No Allergies-Medications (Allergen,Severity, Reaction): Coded Allergies: acetaminophen (Unverified Allergy, Severe, 11/23/16) cortisone (Unverified Allergy, Severe, Swelling, 11/23/16) dichloralphenazone (Unverified Allergy, Severe, 11/23/16) erythromycin base (Unverified Allergy, Severe, 11/23/16) ibuprofen (Unverified Allergy, Severe, 11/23/16) isometheptene (Unverified Allergy, Severe, 11/23/16) orphenadrine (Unverified Allergy, Severe, 11/23/16) cyclobenzaprine (Unverified Allergy, Intermediate, PASS OUT, 11/23/16) Reported Meds & Prescriptions Reported Meds & Active Scripts Active Zofran Odt (Ondansetron Odt) 4 Mg Tab 4 Mg SL Q6HR PRN Bentyl (Dicyclomine HCl) 10 Mg Cap 10 Mg PO TID PRN Zofran (Ondansetron HCl) 4 Mg Tab 4 Mg PO Q6HR PRN Naproxen 500 Mg Tab 500 Mg PO BID 7 Days Baclofen 20 Mg Tab 20 Mg PO TID 5 Days Lyrica (Pregabalin) 150 Mg Cap 150 Mg PO BID 7 Days Medrol Dosepak (Methylprednisolone) 4 Mg Dspk 4 Mg PO DIRECTED Per Pharmacist direction Reported Potassium Chloride Microencaps 20 Meq Tab 20 Meq PO DAILY Lasix (Furosemide) 40 Mg Tab 40 Mg PO DAILY Breo Ellipta Inh (Fluticasone/Vilanterol) 100-25 Mcg/Act Inh 1 Puff INH DAILY Use daily at the same time. Proair Respiclick Inh (Albuterol Sulfate) 90 Mcg/Act Aerp 1 Puff INH Q4H PRN Aspirin 81 Mg Chew 81 Mg CHEW DAILY Simvastatin 20 Mg Tab 20 Mg PO DAILY Lisinopril 10 Mg Tab 10 Mg PO BID Metoprolol Tartrate 50 Mg Tab 50 Mg PO BID Review of Systems Except as stated in HPI: all other systems reviewed are Neg Physical Exam Narrative GENERAL: Well-developed well-nourished male in no acute distress SKIN: Warm and dry. There is an area of mild ecchymosis noted to the proximal right volar forearm. There is no induration, erythema, edema, fluctuance, drainage. HEAD: Atraumatic. Normocephalic. EYES: Pupils equal and round. No scleral icterus. No injection or drainage. ENT: No nasal bleeding or discharge. Mucous membranes pink and moist. NECK: Trachea midline. No JVD. CARDIOVASCULAR: Regular rate and rhythm. No murmur appreciated. RESPIRATORY: No accessory muscle use. Clear to auscultation. Breath sounds equal bilaterally. GASTROINTESTINAL: Abdomen soft, non-tender, nondistended. MUSCULOSKELETAL: No obvious deformities. Skin as noted above with no bony deformity, the compartments of the right forearm are soft and nontender. Capillary refill less than 2 seconds all digits right hand. 2+ radial pulse. NEUROLOGICAL: Awake and alert. No obvious cranial nerve deficits. Motor grossly within normal limits. Normal speech. Data Data Last Documented VS Vital Signs Date Time Temp Pulse Resp B/P Pulse Ox O2 Delivery O2 Flow Rate FiO2 11/24/16 00:32 97.0 88 18 166/72 97 MDM Medical Decision Making Medical Screen Exam Complete: Yes Emergency Medical Condition: Yes Medical Record Reviewed: Yes Differential Diagnosis Ecchymosis from IV insertion, IV infiltration, superficial thrombophlebitis, DVT , cellulitis Narrative Course The patient appears to have developed some ecchymosis at his IV insertion site. Recommend conservative therapy including ice packs to the affected area. He is allergic to Tylenol and ibuprofen so NSAIDs will not be recommended. He is stable for discharge. Diagnosis Primary Impression: Ecchymosis of forearm Additional Instructions: As discussed, ice pack/cold compresses to the affected area several times a day 10-20 minutes at a time. Symptoms should gradually resolve over the next few days. Return for any emergent medical conditions. Med/Other Pt SpecificInfo: No Change to Meds Disposition: 01 DISCHARGE HOME Condition: Stable Jaylen Kurtz Nov 24, 2016 00:48
[2016-11-25] MEDS ORDERED: PERM5CRE11 TOPICAL (11:24)
== END 2016-11-24 00:56 | disposition home or self-care (01) ==
LOC: NEPK 22:28
DX: R23.3 Spontaneous ecchymoses (principal); Z79.82 Long term (current) use of aspirin; I25.10 Atherosclerotic heart disease of native coronary artery without angina pectoris; I10 Essential (primary) hypertension; Z95.5 Presence of coronary angioplasty implant and graft
CPT/HCPCS: 99282

== ENCOUNTER 2016-11-25 10:10 | Emergency (ER) | payer BC ==
[~2016-11-25] VITALS: Ht 180.3 cm; Wt 127.0 kg
[2016-11-25 10:15] VITALS: BP 185/110; PULSE 81; RESP 16; TEMP 98.3; O2SAT 100
[2016-11-25 11:22] VITALS: BP 149/99
[2016-11-25] MEDS ORDERED: PERM5CRE11 TOPICAL (11:24)
--- NOTE | 2016-11-25 11:25 | PD ---
HPI Chief Complaint: Skin Problem Time Seen by Provider: 11:23 Travel History International Travel<30 days: No Contact w/Intl Traveler<30days: No Traveled to known affect area: No History of Present Illness HPI 45-year-old male presents to the emergency Department with complaint of a rash to bilateral arms 2-3 days. States that he sat in a chair at his house and felt like he was getting bit by bugs. The rash is itchy. He denies fever, vomiting. Says he started a new medication on Tuesday, which he said he stopped taking because he thought maybe he was having allergic reaction to it. Denies airway edema, difficulty breathing, shortness of breath. Has not taken any medications or treatments to alleviate his symptoms. Symptoms are mild in severity. Has no medical other complaints. No other modifying factors or associated signs and symptoms. PFSH Past Medical History Hx Anticoagulant Therapy: Yes (asa) Cardiac Catheterization: Yes (rca stent) Cardiovascular Problems: Yes (MIx3, stent x1, CAD, HTN) COPD: Yes Diminished Hearing: No Musculoskeletal: Yes (back pain) Neurologic: Yes (neuropathy) Respiratory: Yes (COPD) Social History Alcohol Use: No Tobacco Use: Yes Substance Use: No Allergies-Medications (Allergen,Severity, Reaction): Coded Allergies: acetaminophen (Unverified Allergy, Severe, 11/23/16) cortisone (Unverified Allergy, Severe, Swelling, 11/23/16) dichloralphenazone (Unverified Allergy, Severe, 11/23/16) erythromycin base (Unverified Allergy, Severe, 11/23/16) ibuprofen (Unverified Allergy, Severe, 11/23/16) isometheptene (Unverified Allergy, Severe, 11/23/16) orphenadrine (Unverified Allergy, Severe, 11/23/16) cyclobenzaprine (Unverified Allergy, Intermediate, PASS OUT, 11/23/16) Reported Meds & Prescriptions Reported Meds & Active Scripts Active Elimite Topical (Permethrin) 5% Cream 1 Applic TOPICAL ONCE Zofran (Ondansetron HCl) 4 Mg Tab 4 Mg PO Q6HR PRN Naproxen 500 Mg Tab 500 Mg PO BID 7 Days Lyrica (Pregabalin) 150 Mg Cap 150 Mg PO BID 7 Days Reported Potassium Chloride Microencaps 20 Meq Tab 20 Meq PO DAILY Lasix (Furosemide) 40 Mg Tab 40 Mg PO DAILY Breo Ellipta Inh (Fluticasone/Vilanterol) 100-25 Mcg/Act Inh 1 Puff INH DAILY Use daily at the same time. Proair Respiclick Inh (Albuterol Sulfate) 90 Mcg/Act Aerp 1 Puff INH Q4H PRN Aspirin 81 Mg Chew 81 Mg CHEW DAILY Lisinopril 10 Mg Tab 10 Mg PO BID Review of Systems Except as stated in HPI: all other systems reviewed are Neg Physical Exam Narrative GENERAL: Well-nourished, well-developed male patient, in no acute distress; afebrile, nontoxic-appearing SKIN: Warm and dry. Generalized erythremic pimple-like rash to bilateral lower extremities. No areas with cellulitic process noted. HEAD: Atraumatic. Normocephalic. EYES: Pupils equal and round. No scleral icterus. No injection or drainage. ENT: Mucosa pink and moist. Airway patent. NECK: Trachea midline. CARDIOVASCULAR: Regular rate. RESPIRATORY: No accessory muscle use. GASTROINTESTINAL: Obese. MUSCULOSKELETAL: No obvious deformities. No clubbing. No cyanosis. No edema. NEUROLOGICAL: Awake and alert. Oriented 3. No obvious cranial nerve deficits. Motor grossly within normal limits. Normal speech. PSYCHIATRIC: Appropriate mood and affect; insight and judgment normal. Data Data Last Documented VS Vital Signs Date Time Temp Pulse Resp B/P Pulse Ox O2 Delivery O2 Flow Rate FiO2 11/25/16 11:22 149/99 11/25/16 10:15 98.3 81 16 100 MDM Medical Decision Making Medical Screen Exam Complete: Yes Emergency Medical Condition: Yes Medical Record Reviewed: Yes Differential Diagnosis Nonspecific rash, scabies rash, allergic reaction, contact dermatitis Narrative Course 45-year-old male physical exam consistent with a rash to bilateral upper extremities that appears to be consistent with scabies. Rash is itchy in nature. Patient is afebrile and nontoxic appearing. Denies fever, vomiting. Patient has a follow-up appointment with his PCP tomorrow. Elimite cream prescribed for home. Instructed patient to follow up with dermatology as needed. Instructed patient to follow up with primary care provider. Patient verbalizes understanding and agreement with treatment plan. Patient is medically cleared and stable for discharge. Discussed reasons to return to the emergency department. Patient agrees with treatment plan. The patients vital signs are stable and the patient is stable for outpatient follow-up and treatment. Patient discharged home, stable and in no acute distress. Diagnosis Primary Impression: Scabies Referrals: [facility] Primary Care Physician Patient Instructions: General Instructions, Scabies (ED) Additional Instructions: Elimite cream as directed; repeat in one week as needed Soaking in cool water or apply cool, wet washcloths to irritated areas to minimize itching Apply anti-itch creams, such as calamine lotion, to relieve pain and itching as needed [id number] antihistamines as needed and as directed to relieve allergic symptoms caused by scabies Wash all pillows, linens, blankets, etc. in hot water and dry in hot dryer Bag and all unwashable linens, [place] stuffed animals, etc. in a tightly sealed garbage bag for up to 2 weeks Follow-up with air conditioning service technician Follow-up with primary care provider Return to the emergency department immediately with worsening of symptoms Med/Other Pt SpecificInfo: Prescription(s) given Scripts Permethrin Topical (Elimite Topical)5% Cream1 Applic TOPICAL ONCE #1 TUBE Ref 1 Prov:Carole Rios 11/25/16 Disposition: DISCHARGE HOME Condition: Stable Carole Rios Nov 25, 2016 11:25
== END 2016-11-25 11:46 | disposition home or self-care (01) ==
LOC: NEPK 10:10
DX: B86 Scabies (principal); I25.10 Atherosclerotic heart disease of native coronary artery without angina pectoris; I10 Essential (primary) hypertension; J44.9 Chronic obstructive pulmonary disease, unspecified; G62.9 Polyneuropathy, unspecified; Z72.0 Tobacco use; Z79.899 Other long term (current) drug therapy; Z79.82 Long term (current) use of aspirin
CPT/HCPCS: 99283

== ENCOUNTER 2016-12-13 22:46 | Emergency (ER) | payer BC ==
[~2016-12-13] VITALS: Ht 180.3 cm; Wt 127.0 kg
[~2016-12-13 22:46] MED LIST changes: -BACL20TA PO; -DICY10 PO; -MEDR4PAK PO; -METO50TA PO; +PERM5CRE11 TOPICAL; -SIMV20TA PO; -ZOFR4TAB3 SL
[2016-12-13 22:49] VITALS: BP 205/117; PULSE 93; RESP 28; O2SAT 100
[2016-12-13] MEDS ORDERED: SODIUM CHLORIDE 0.9% FLUSH 10 ML FLUSH IVF PRN (23:15)
[2016-12-13] MEDS ORDERED: ASPIRIN 81 MG CHEW TAB CHEW ONE (23:15)
[2016-12-13] MEDS ORDERED: NITROGLYCERIN 2% OINT 1 GM PACKET TOPICAL ONE (23:15)
[2016-12-13] MEDS ORDERED: RESP: ALBUTEROL 2.5 MG/IPRATROPIUM 0.5 MG NEB (SCH) INH ONE (23:15)
[2016-12-13] MEDS ORDERED: NITROGLYCERIN 0.4 MG SL 25 TABS/BTL SL ONE (23:15)
--- NOTE | 2016-12-13 23:25 | PD ---
HPI Chief Complaint: Respiratory Distress Time Seen by Provider: 22:58 Travel History International Travel<30 days: No Contact w/Intl Traveler<30days: No Traveled to known affect area: No History of Present Illness HPI The patient is a 46 year old male who presents to the [facility] emergency department with a history of chest tightness with shortness of breath that began approximately 30 minutes prior to arrival. He attempted to use his albuterol inhaler without relief. He reports that he had sudden onset of nausea and vomiting 1 associated with this. He reports that when the shortness of breath initially began he felt a pain in the posterior left lower chest, however this seems to have resolved. He now has a tightening sensation in the center of his chest. He reports that it is different from his chest pressure when he is having myocardial infarctions in the past. He reports that he's had 3 prior MIs with 1 stent placed. He also has a history of congestive heart failure with an ejection fraction that was initially 21%, however he reports this did go up to 35%. The patient reports that his primary care physician is Dr. Sofia. He recently had his metoprolol discontinued, however he is unsure why. This was discontinued 4-5 days ago. He continues to take lisinopril and Lasix. On review of systems, the patient denies having any recent known fevers, worsening cough or congestion, new neck pain, abdominal pain, vomiting, diarrhea, urinary symptoms, or new neurologic symptoms. The patient has a history of chronic neck and back pain that he reports is related to degenerative disc disease. He also reports having chronic hip pain bilaterally. [facility] Past Medical History Narrative Medical The patient's past medical history is significant for tobacco abuse. He reports that a week ago he was started on Chantix and has gone from 2 packs of cigarettes per day down to one half of a pack of cigarettes per day, history of hypertension, congestive heart failure, coronary artery disease with 3 prior MIs and 1 stent placed, history of COPD, history of chronic neck and back pain, history of bilateral hip pain, history of neuropathy. Hx Anticoagulant Therapy: Yes (asa) Asthma: Yes Cardiac Catheterization: Yes (rca stent) Cardiovascular Problems: Yes (HTN, [place] x3) COPD: Yes Diminished Hearing: No Hypertension: Yes Musculoskeletal: Yes (back pain) Neurologic: Yes (neuropathy) Respiratory: Yes (COPD, Asthma) Myocardial Infarction: Yes (x3) Tetanus Vaccination: < 5 Years Influenza Vaccination: No Past Surgical History Narrative Surgical The patient's past surgical history is significant for a right Achilles tendon repair, history of cardiac catheterization with stent placement. Other Surgery: Yes (R achellies tendon) Social History Alcohol Use: No Tobacco Use: Yes (one half pack per day) Substance Use: No Allergies-Medications (Allergen,Severity, Reaction): Coded Allergies: acetaminophen (Unverified Allergy, Severe, 11/23/16) cortisone (Unverified Allergy, Severe, Swelling, 11/23/16) dichloralphenazone (Unverified Allergy, Severe, 11/23/16) erythromycin base (Unverified Allergy, Severe, 11/23/16) ibuprofen (Unverified Allergy, Severe, 11/23/16) isometheptene (Unverified Allergy, Severe, 11/23/16) orphenadrine (Unverified Allergy, Severe, 11/23/16) cyclobenzaprine (Unverified Allergy, Intermediate, PASS OUT, 11/23/16) Reported Meds & Prescriptions Reported Meds & Active Scripts Active Zofran (Ondansetron HCl) 4 Mg Tab 4 Mg PO Q6HR PRN Naproxen 500 Mg Tab 500 Mg PO BID 7 Days Lyrica (Pregabalin) 150 Mg Cap 150 Mg PO BID 7 Days Reported Potassium Chloride Microencaps 20 Meq Tab 20 Meq PO DAILY Lasix (Furosemide) 40 Mg Tab 40 Mg PO DAILY Proair Respiclick Inh (Albuterol Sulfate) 90 Mcg/Act Aerp 1 Puff INH Q4H PRN Aspirin 81 Mg Chew 81 Mg CHEW DAILY Lisinopril 10 Mg Tab 10 Mg PO BID Review of Systems Except as stated in HPI: all other systems reviewed are Neg General / Constitutional: No: Fever Eyes: No: Visual changes HENT: No: Headaches Cardiovascular: Positive: Chest Pain or Discomfort (chest tightness), Dyspnea on exertion Respiratory: Positive: Cough, Shortness of Breath Gastrointestinal: Positive: Nausea, Vomiting, No: Diarrhea, Abdominal Pain, Changes in Bowel Habits, Indigestion, Loss of Appetite Genitourinary: No: Dysuria Musculoskeletal: Positive: Myalgias, Arthralgias, No: Pain Skin: No Rash Neurologic: No: Weakness, Focal Abnormalities, Change in Mentation, Slurred Speech, Sensory Disturbance Psychiatric: Positive: Anxiety, No: Depression, Substance Abuse Endocrine: No: Polydipsia Hematologic/Lymphatic: No: Easy Bruising Physical Exam Narrative General: The patient is a well-developed well-nourished male anxious appearing on initial arrival with O2 saturations of 100%, tachypnea, hypertension with initial blood pressure of 205/117. Head and Neck exam: Head is normocephalic atraumatic. Eyes: EOMI, pupils are equal round and reactive to light. Nose: Midline septum with pink mucous membranes Mouth: Dentition unremarkable. Moist mucus membranes. Posterior oropharynx is not erythematous. No tonsillar hypertrophy. Uvula midline. Airway patent. Neck: No palpable lymphadenopathy. No nuchal rigidity. No thyromegaly. Cardiovascular: Regular rate and rhythm without murmurs, gallops, or rubs. Lungs: Decreased breath sounds in bilateral bases. Soft expiratory wheezes audible anteriorly. No rhonchi, no crackles. No accessory muscle use. No paroxysmal abdominal breathing. Abdomen: Soft, without tenderness to palpation in all 4 quadrants of the abdomen. No guarding, rebound, or rigidity. Normal bowel sounds are audible. No tenderness on palpation of McBurney's point. Extremities: No clubbing or cyanosis. The patient has 1+ pitting edema bilateral lower extremity. 2+ pulses in all 4 extremities. The patient denies any calf tenderness on palpation. Back: No spinous process tenderness to palpation. No costovertebral angle tenderness to palpation. Neurologic Exam: Grossly nonfocal. Skin Exam: No rash noted. Intact skin that is warm and dry. Data Data Last Documented VS Vital Signs Date Time Temp Pulse Resp B/P (MAP) Pulse Ox O2 Delivery O2 Flow Rate FiO2 12/14/16 00:51 12/13/16 23:42 100 12/13/16 23:41 21 12/13/16 23:03 30 Room Air 12/13/16 22:49 93 Orders Orders Complete Blood Count With Diff (12/13/16 23:11) Comprehensive Metabolic Panel (12/13/16 23:11) B-Type Natriuretic Peptide (12/13/16 23:11) Act Partial Throm Time (Ptt) (12/13/16 23:11) Prothrombin Time / Inr (Pt) (12/13/16 23:11) Magnesium (Mg) (12/13/16 23:11) Ckmb (Isoenzyme) Profile (12/13/16 23:11) Troponin I (12/13/16 23:11) Urinalysis - C+S If Indicated (12/13/16 23:11) Iv Access Insert/Monitor (12/13/16 23:11) Electrocardiogram (12/13/16 23:11) Ecg Monitoring (12/13/16 23:11) Oximetry (12/13/16 23:11) Oxygen Administration (12/13/16 23:11) Chest, Single Ap (12/13/16 23:11) Sodium Chloride 0.9% Flush (Ns Flush) (12/13/16 23:15) Albuterol-Ipratropium Neb (Duoneb Neb) (12/13/16 23:15) Aspirin Chew (Aspirin Chew) (12/13/16 23:15) Nitroglycerin Sl (Nitrostat Sl) (12/13/16 23:15) Nitroglycerin 2% Oint (Nitroglycerin 2% (12/13/16 23:15) CKMB (12/13/16 23:15) CKMB% (12/13/16 23:15) Labs Laboratory Tests Test 12/13/16 23:15 12/13/16 23:30 White Blood Count 8.9 TH/MM3 Red Blood Count 5.06 MIL/MM3 Hemoglobin 15.8 GM/DL Hematocrit 46.1 % Mean Corpuscular Volume 91.1 FL Mean Corpuscular Hemoglobin 31.3 PG Mean Corpuscular Hemoglobin Concent 34.4 % Red Cell Distribution Width 13.2 % Platelet Count 122 TH/MM3 Mean Platelet Volume 9.8 FL Neutrophils (%) (Auto) 69.1 % Lymphocytes (%) (Auto) 20.1 % Monocytes (%) (Auto) 7.1 % Eosinophils (%) (Auto) 2.7 % Basophils (%) (Auto) 1.0 % Neutrophils # (Auto) 6.2 TH/MM3 Lymphocytes # (Auto) 1.8 TH/MM3 Monocytes # (Auto) 0.6 TH/MM3 Eosinophils # (Auto) 0.2 TH/MM3 Basophils # (Auto) 0.1 TH/MM3 CBC Comment DIFF FINAL Differential Comment Prothrombin Time 10.4 SEC Prothromb Time International Ratio 0.9 RATIO Activated Partial Thromboplast Time 24.1 SEC Blood Urea Nitrogen 17 MG/DL Creatinine 0.89 MG/DL Random Glucose 91 MG/DL Total Protein 6.9 GM/DL Albumin 4.0 GM/DL Calcium Level 9.6 MG/DL Magnesium Level 1.9 MG/DL Alkaline Phosphatase 59 U/L Aspartate Amino Transf (AST/SGOT) 32 U/L Alanine Aminotransferase (ALT/SGPT) 34 U/L Total Bilirubin 0.5 MG/DL Sodium Level 139 MEQ/L Potassium Level 4.6 MEQ/L Chloride Level 106 MEQ/L Carbon Dioxide Level 26.4 MEQ/L Anion Gap 7 MEQ/L Estimat Glomerular Filtration Rate 92 ML/MIN Total Creatine Kinase 227 U/L Creatine Kinase MB 1.2 NG/ML Troponin I LESS THAN 0.02 NG/ML B-Type Natriuretic Peptide 49 PG/ML Urine Color YELLOW Urine Turbidity HAZY Urine pH 7.0 Urine Specific [place] 1.026 Urine Protein TRACE mg/dL Urine Glucose (UA) NEG mg/dL Urine Ketones NEG mg/dL Urine Occult Blood NEG Urine Nitrite NEG Urine Bilirubin NEG Urine Urobilinogen 2.0 MG/DL Urine Leukocyte Esterase NEG Urine RBC 5 /hpf Urine WBC 1 /hpf Urine Amorphous Sediment FEW Microscopic Urinalysis Comment CULT NOT INDICATED MDM Medical Decision Making Medical Screen Exam Complete: Yes Emergency Medical Condition: Yes Medical Record Reviewed: Yes Interpretation(s) Last Impressions Chest X-Ray 12/13/16 8458 Signed Impressions: Service Date/Time: Tuesday, December 13, 2016 23:25 - CONCLUSION: 1. Negative portable chest. Manpreet Urbano MD Differential Diagnosis Acute coronary syndrome, versus COPD exacerbation, versus pneumothorax, versus pleurisy, versus pneumonia, versus congestive heart failure exacerbation Narrative Course During the course of the patients emergency department visit, the patients history, examination, and differential diagnosis were reviewed with the patient. The patient had IV access obtained and blood work sent for analysis. The patient was placed on a clinical trials assistant with oximetry and blood pressure monitoring. An ECG was done on arrival. The patient's ECG reveals a sinus rhythm heart rate of 84, intraventricular conduction delay is noted with a QRS duration of 134 ms, Q waves are noted to be present in lead 3 and aVF with T- wave inversions in lead 3, V1. No acute ST segment elevation is noted. No acute ST segment depression is noted. There is no prior ECG available for comparison. The patient was initially provided aspirin 162 mg by mouth 1, nitroglycerin sublingual, nitroglycerin 1 inch the chest wall. A DuoNeb 1. The patients laboratory studies were reviewed and remarkable for a white count of 8.9, hemoglobin 15.8, platelets 122 with a normal differential. CMP is within normal limits, CPK 227, troponin I less than 0.02, BNP 49, PT 10.4, PTT 24.1 urinalysis shows 5 RBCs otherwise unremarkable. Radiology studies were reviewed and remarkable for a chest x-ray that shows no acute cardiopulmonary abnormality. The patient reports that his symptoms have resolved and he would like to leave. The patient reports that his last stress test was done 4 years ago. He reports that he hasn't point with his new financial risk manager, Dr. Roldan for later this week. I explained to him that as it has been 4 years since his last stress test and he has significant cardiac risk factors including a prior history of [place], I recommended that he stay for admission to the chest pain center , rule out serial cardiac enzyme protocol and stress testing in the hospital. The patient refuses. The patient is aware that his symptoms could be cardiac in origin. The patient reports that he would like to leave AGAINST MEDICAL ADVICE. AMA: The risks of leaving against medical advice without further evaluation treatment were discussed with the patient. These risks include cardiac dysfunction, cardiac dysrhythmia, possible heart attack, possible stroke or . The patient indicated understanding of these risks and appeared to have the capacity to make this decision. Diagnosis Primary Impression: Chest pain, rule out acute myocardial infarction Additional Impression: COPD exacerbation Admitting Information Admitting Physician Requests: Observation Referrals: Mailing Section Clerk Primary Care Physician Patient Instructions: COPD (Chronic Obstructive Pulmonary Disease) (ED), Chest Pain (ED), General Instructions Med/Other Pt SpecificInfo: No Change to Meds Disposition: 07 AGAINST MEDICAL ADVICE Condition: Ruth James MD Dec 13, 2016 23:25
[2016-12-13 23:37] LABS: AUTOMATED NEUTROPHIL # 6.2 TH/MM3 (1.8-7.7); BASOPHIL # 0.1 TH/MM3 (0-0.2); EOSINOPHIL # 0.2 TH/MM3 (0-0.4); EOSINOPHIL % 2.7 % (0.0-4.0); HEMATOCRIT 46.1 % (39.0-51.0); HEMO FLAGS DIFF FINAL; LYMPH % 20.1 % (9.0-44.0); LYMPHOCYTE # 1.8 TH/MM3 (1.0-4.8); MEAN CELL VOLUME 91.1 FL (80.0-100.0); MEAN CORPUSCULAR HEMOGLOBIN 31.3 PG (27.0-34.0); MEAN CORPUSCULAR HGB CONC 34.4 % (32.0-36.0); MONO % 7.1 % (0.0-8.0); NEUT % 69.1 % (16.0-70.0); PLATELET COUNT 122 TH/MM3 (150-450); RED BLOOD COUNT 5.06 MIL/MM3 (4.50-5.90); RED CELL DISTRIBUTION WIDTH 13.2 % (11.6-17.2); WHITE BLOOD COUNT 8.9 TH/MM3 (4.0-11.0)
[2016-12-13 23:41] VITALS: O2SAT 94
[2016-12-13 23:42] VITALS: O2SAT 100
[2016-12-13 23:46] LABS: APTT (PATIENT) 24.1 SEC (24.3-30.1); INTERNATIONAL NORMALIZED RATIO 0.9 RATIO; PROTHROMBIN TIME - PATIENT 10.4 SEC (9.8-11.6)
[2016-12-13 23:50] LABS: BLOOD, URINE NEG (NEG); COMMENT (UR) CULT NOT INDICATED; CULTURE IF INDICATED CULT NOT INDICATED; GLUCOSE,URINE NEG (NEG); KETONE, URINE NEG (NEG); NITRITE,URINE NEG (NEG); URINE COLOR YELLOW (YELLW/STRAW)
[2016-12-13 23:50] LABS: ALT (GPT) 34 U/L (12-78)
[2016-12-14 00:04] LABS: ALKALINE PHOSPHATASE 59 U/L (45-117); ANION GAP 7 MEQ/L (5-15); AST (GOT) 32 U/L (15-37); BICARBONATE 26.4 MEQ/L (21.0-32.0); BLOOD UREA NITROGEN 17 MG/DL (7-18); CHLORIDE 106 MEQ/L (98-107); CREATINE KINASE 227 U/L (39-308); GLOMERULAR FILTRATION RATE 92 ML/MIN (>89); MAGNESIUM 1.9 MG/DL (1.5-2.5); POTASSIUM 4.6 MEQ/L (3.5-5.1); SODIUM (NA) 139 MEQ/L (136-145); TOTAL BILIRUBIN ADULT 0.5 MG/DL (0.2-1.0)
--- NOTE | 2016-12-14 00:11 | RADRPT ---
EXAM DATE/TIME: 12/13/2016 23:25 [facility] COMPARISON: No previous studies available for comparison. INDICATIONS : Short of breath. MEDICAL HISTORY : None. SURGICAL HISTORY : None. ENCOUNTER: Initial ACUITY: 1 day PAIN SCORE: 6/10 LOCATION: Bilateral chest FINDINGS: No significant focal pleural or parenchymal opacities. Cardiomediastinal contours are within normal l imits given portable technique. Slight indistinctness of the central pulmonary vasculature likely due to portable technique. Only proximal is grossly intact. CONCLUSION: 1. Negative portable chest. Manpreet Urbano MD on December 14, 2016 at 0:08 Board Certified Radiologist. This report was verified electronically.
[2016-12-14 00:17] LABS: CKMB 1.2 NG/ML (0.5-3.6)
--- NOTE | 2016-12-14 14:07 | EKG ---
Date Performed: 12/13/2016 Time Performed: 23:31:26 PTAGE: 46 years EKG: Sinus rhythm INTRAVENTRICULAR CONDUCTION DELAY MODERATE VOLTAGE CRITERIA FOR LVH, CONSIDER NORMAL VARIANT INFERIO R MYOCARDIAL INFARCTION ABNORMAL ECG NO PREVIOUS TRACING Clinical correlation recommended. DOCTOR: Aaron Garcia Interpretating Date/Time 12/14/2016 14:04:45
== END 2016-12-14 00:51 | disposition left against medical advice (07) ==
LOC: NEPC 22:46
DX: J44.1 Chronic obstructive pulmonary disease with (acute) exacerbation (principal); F17.210 Nicotine dependence, cigarettes, uncomplicated; R94.31 Abnormal electrocardiogram [ECG] [EKG]
CPT/HCPCS: 71010; 80053; 81001; 82550; 82552; 83735; 83880; 84484; 85025; 85610; 85730; 93005; 94664; 99285

== ENCOUNTER 2016-12-27 00:08 | Emergency (ER) | payer BC ==
[~2016-12-27] VITALS: Ht 180.3 cm; Wt 105.0 kg
[~2016-12-27 00:08] MED LIST changes: -FLUT1INH INH; -PERM5CRE11 TOPICAL
[2016-12-27 00:11] VITALS: BP 143/86; PULSE 90; RESP 16; TEMP 97.8; O2SAT 98
[2016-12-27] MEDS ORDERED: METO50TA PO (01:17)
[2016-12-27] MEDS ORDERED: LISI-515 PO (01:17)
--- NOTE | 2016-12-27 01:48 | PD ---
HPI Chief Complaint: Headache Time Seen by Provider: 01:15 Travel History International Travel<30 days: No Contact w/Intl Traveler<30days: No Traveled to known affect area: No History of Present Illness HPI The patient is a 46 year old male who presents to the [facility] emergency department with a history of headache that began at 11AM yesterday. It started behind both eyes and then generalized throughout his head. It feels like a sharp pain behind his eyes. He has sensitivity to light and sound. He reports that he's had nausea and vomiting 2. He reports that he has had a similar headache in the past that was treated with Toradol, Benadryl, and IV fluids with relief. The patient reports that the headache gradually worsened with time. He denies having a thunderclap quality to the headache. On review of systems, he denies having any recent fevers, cough, congestion, new neck pain, chest pain, shortness of breath, abdominal pain, vomiting, diarrhea, urinary symptoms, or new neurologic symptoms. He has had some constipation recently that was relieved with a stool softener. The patient reports that his headache was not improving with Excedrin. The patient reports that he believes that anxiety triggered the headache as he is concerned that he has a stress test scheduled with his territory business manager, Dr. Roldan for tomorrow. [facility] Past Medical History Narrative Medical the patient's past medical history is significant for migraines, COPD, hypertension, CAD with a reported history of 3 prior myocardial infarctions, history of chronic neck and back pain, history of bilateral hip pain, history of neuropathy, history of tobacco abuse, history of congestive heart failure. Hx Anticoagulant Therapy: Yes (asa) Asthma: Yes Cardiac Catheterization: Yes (rca stent) Cardiovascular Problems: Yes ([place]) COPD: Yes Diminished Hearing: No Hypertension: Yes Musculoskeletal: Yes (back pain) Neurologic: Yes (neuropathy) Respiratory: Yes (COPD, Asthma) Myocardial Infarction: Yes (x3) Past Surgical History Narrative Surgical The patient's past surgical history is significant for a right Achilles tendon repair, history of cardiac catheterization with stent placement. Other Surgery: Yes (R achellies tendon) Social History Alcohol Use: No Tobacco Use: Yes (one half pack per day) Substance Use: No Allergies-Medications (Allergen,Severity, Reaction): Coded Allergies: acetaminophen (Unverified Allergy, Severe, 9/18/17) cortisone (Unverified Allergy, Severe, Swelling, 12/27/16) dichloralphenazone (Unverified Allergy, Severe, 12/27/16) erythromycin base (Unverified Allergy, Severe, 12/27/16) ibuprofen (Unverified Allergy, Severe, 12/27/16) isometheptene (Unverified Allergy, Severe, 12/27/16) orphenadrine (Unverified Allergy, Severe, 12/27/16) cyclobenzaprine (Unverified Allergy, Intermediate, PASS OUT, 12/27/16) Reported Meds & Prescriptions Reported Meds & Active Scripts Active Naproxen 500 Mg Tab 500 Mg PO BID 7 Days Lyrica (Pregabalin) 150 Mg Cap 150 Mg PO BID 7 Days Reported Metoprolol Tartrate 50 Mg Tab 50 Mg PO BID Lisinopril 20 Mg Tab 20 Mg PO DAILY Potassium Chloride Microencaps 20 Meq Tab 20 Meq PO DAILY Lasix (Furosemide) 40 Mg Tab 40 Mg PO DAILY Proair Respiclick Inh (Albuterol Sulfate) 90 Mcg/Act Aerp 1 Puff INH Q4H PRN Aspirin 81 Mg Chew 81 Mg CHEW DAILY Review of Systems Except as stated in HPI: all other systems reviewed are Neg General / Constitutional: No: Fever Eyes: Positive: Photophobia, No: Visual changes HENT: Positive: Headaches, No: Rhinorrhea, Congestion, Neck Stiffness, Neck Pain Cardiovascular: No: Chest Pain or Discomfort Respiratory: No: Shortness of Breath Gastrointestinal: Positive: Nausea, Vomiting, No: Diarrhea, Abdominal Pain Genitourinary: No: Dysuria Musculoskeletal: No: Pain Skin: No Rash Neurologic: Positive: Headache, No: Weakness, Focal Abnormalities, Change in Mentation, Slurred Speech Psychiatric: No: Depression Endocrine: No: Polydipsia Hematologic/Lymphatic: No: Easy Bruising Physical Exam Narrative General: The patient is a well-developed well-nourished male in no acute distress. Head and Neck exam: Head is normocephalic atraumatic. Eyes: EOMI, pupils are equal round and reactive to light. Nose: Midline septum with pink mucous membranes Mouth: Dentition unremarkable. Moist mucus membranes. Posterior oropharynx is not erythematous. No tonsillar hypertrophy. Uvula midline. Airway patent. Neck: No palpable lymphadenopathy. No nuchal rigidity. No thyromegaly. Negative Brudzinski, negative Kernig sign. No spinous process tenderness to palpation. No step-off or crepitus. No erythema or ecchymosis. Cardiovascular: Regular rate and rhythm without murmurs, gallops, or rubs. Lungs: Clear to auscultation bilaterally. No wheezes, rhonchi, or rales. Abdomen: Soft, without tenderness to palpation in all 4 quadrants of the abdomen. No guarding, rebound, or rigidity. Normal bowel sounds are audible. No tenderness on palpation of McBurney's point. Extremities: No clubbing, cyanosis, or edema. 2+ pulses in all 4 extremities. No calf tenderness on palpation. Back: No spinous process tenderness to palpation. No costovertebral angle tenderness to palpation. Neurologic Exam: Cranial nerves 2-12 were intact on exam. Strength is 5/5 in all 4 extremities. No sensory deficits noted. Skin Exam: No rash noted. Intact skin that is warm and dry. Data Data Last Documented VS Vital Signs Date Time Temp Pulse Resp B/P (MAP) Pulse Ox O2 Delivery O2 Flow Rate FiO2 12/27/16 00:11 97.8 90 16 143/86 (105) 98 Room Air Orders Orders Ketorolac Inj (Toradol Inj) (12/27/16 02:15) Sodium Chlorid 0.9% 500 Ml Inj (Ns 500 M (12/27/16 02:15) Prochlorperazine Inj (Compazine Inj) (12/27/16 02:15) Diphenhydramine Inj (Benadryl Inj) (12/27/16 02:15) Ct Brain W/O Iv Contrast(Rout) (12/27/16 02:11) [facility] Medical Decision Making Medical Screen Exam Complete: Yes Emergency Medical Condition: Yes Medical Record Reviewed: Yes Interpretation(s) Last Impressions Head CT 12/27/16210 Signed Impressions: Service Date/Time: Tuesday, December 27, 2016 03:05 - CONCLUSION: No acute disease. Maxim Cook Jr., MD Differential Diagnosis Intracranial hemorrhage, versus intracranial mass, versus migraine headache, versus tension headache, versus anxiety Narrative Course During the course of the patients emergency department visit, the patients history, examination, and differential diagnosis were reviewed with the patient. The patient had IV access obtained and blood work sent for analysis. The patient had a CT scan of the brain ordered. The patient was initially provided normal saline 500 mL bolus 1, Toradol 15 mg IV, Compazine 5 mg IV, Benadryl 25 mg IV. Radiology studies were reviewed and remarkable for a CT scan of the brain shows no acute abnormality. The patient is resting comfortably and feels better, is alert and in no distress. The patients results and examination findings were discussed with the patient. The repeat examination is unremarkable and benign. The history, exam, diagnostic testing, and current condition do not suggest any significant pathology to warrant further testing, continued ED treatment, admission, or surgical evaluation at this point. The vital signs have been stable. The patient does not have uncontrollable pain, intractable vomiting, or other significant symptoms. The patient's condition is stable and appropriate for discharge. The patient will pursue further outpatient evaluation with a primary care physician or other designated or consulting physician as indicated in the discharge instructions. The patient expressed understanding and was agreeable with this plan. Diagnosis Primary Impression: Headache Qualified Codes: R51 - Headache Referrals: Primary Care Physician 2 days Patient Instructions: General Instructions, Migraine Headache (ED) Med/Other Pt SpecificInfo: No Change to Meds Disposition: 01 DISCHARGE HOME Condition: Stable Ruth Ng MD Dec 27, 2016 01:48
[2016-12-27] MEDS ORDERED: KETOROLAC TROMETHAMINE 30 MG/ML (IVP) VIAL IV PUSH ONE (02:15)
[2016-12-27] MEDS ORDERED: diphenhydrAMINE HCL 50 MG/ML VIAL IV PUSH ONE (02:15)
[2016-12-27] MEDS ORDERED: SODIUM CHLORID 0.9% 500 ML INJ 500 ML IV ONE (02:15)
[2016-12-27] MEDS ORDERED: PROCHLORPERAZINE INJ 10 MG/2 ML VIAL IV PUSH ONE (02:15)
--- NOTE | 2016-12-27 03:29 | RADRPT ---
EXAM DATE/TIME: 12/27/2016 03:05 [facility] COMPARISON: CT BRAIN W/O CONTRAST, October 17, 2016, 10:24. INDICATIONS : Altered mental status. RADIATION DOSE: 56.35 CTDIvol (mGy) MEDICAL HISTORY : Cardiovascular disease. Myocardial infarction. Chronic obstructive pulmonary disease.Hypertension. As thma. SURGICAL HISTORY : None. ENCOUNTER: Initial ACUITY: 1 day PAIN SCALE: Non-responsive LOCATION: cranial TECHNIQUE: Multiple contiguous axial images were obtained of the head. Using automated exposure control and adj ustment of the mA and/or kV according to patient size, radiation dose was kept as low as reasonably a chievable to obtain optimal diagnostic quality images. DICOM format image data is available electro nically for review and comparison. FINDINGS: CEREBRUM: The ventricles are normal for age. No evidence of midline shift, mass lesion, hemorrhage or acute in farction. No extra-axial fluid collections are seen. POSTERIOR FOSSA: The cerebellum and brainstem are intact. The 4th ventricle is midline. The cerebellopontine angle i s unremarkable. EXTRACRANIAL: The visualized portion of the orbits is intact. SKULL: The calvaria is intact. No evidence of skull fracture. CONCLUSION: No acute disease. Maxim Cook Jr., MD on December 27, 2016 at 3:27 Board Certified Radiologist. This report was verified electronically.
== END 2016-12-27 05:15 | disposition home or self-care (01) ==
LOC: NEPE 00:08
DX: R51 Headache (principal); R11.2 Nausea with vomiting, unspecified; I10 Essential (primary) hypertension; I25.2 Old myocardial infarction; F17.200 Nicotine dependence, unspecified, uncomplicated; Z79.82 Long term (current) use of aspirin; Z87.09 Personal history of other diseases of the respiratory system; Z86.79 Personal history of other diseases of the circulatory system; Z87.39 Personal history of other diseases of the musculoskeletal system and connective tissue; Z86.69 Personal history of other diseases of the nervous system and sense organs
CPT/HCPCS: 70450; 96374; 96375; 99285; J0780; J1200; J1885; J7040

== ENCOUNTER 2016-12-30 21:21 | Emergency (ER) | payer BC ==
[~2016-12-30] VITALS: Ht 180.3 cm; Wt 132.0 kg
[~2016-12-30 21:21] MED LIST changes: +LISI-515 PO; -LISI10TA3 PO; +METO50TA PO; -ZOFR4TAB PO
[2016-12-30 21:23] VITALS: BP 165/97; PULSE 94; RESP 16; TEMP 98.2; O2SAT 96
--- NOTE | 2016-12-30 21:41 | PD ---
Physical Exam Date Seen by Provider: Dec 30, 2016 Time Seen by Provider: 21:38 Narrative 46-year-old male presents to the emergency department with dysuria, urinary frequency, and pain into the right flank. Patient denies hematuria. Patient admits to night sweats last evening. Patient unsure of any fever. Pain 7/10. No nausea or vomiting. No diarrhea. Patient has multiple allergies. Please see list. Vital signs are stable. Patient is awaiting med bed placement. Data Data Last Documented VS Vital Signs Date Time Temp Pulse Resp B/P (MAP) Pulse Ox O2 Delivery O2 Flow Rate FiO2 12/30/16 21:23 98.2 94 16 165/97 (119) 96 Room Air [facility] Medical Record Reviewed: Yes Supervised Visit with ELFEGO: Yes Condition: Stable Chin Keller Dec 30, 2016 21:41
[2016-12-30] MEDS ORDERED: SODIUM CHLOR 0.9% 1000 ML INJ 1,000 ML IV ONE (21:57)
[2016-12-30] MEDS ORDERED: ONDANSETRON HCL 4 MG/2 ML VIAL IVP ONE (22:00)
--- NOTE | 2016-12-30 22:01 | PD ---
HPI Chief Complaint: Complaint Time Seen by Provider: 21:48 Travel History International Travel<30 days: No Contact w/Intl Traveler<30days: No Traveled to known affect area: No History of Present Illness HPI This is a 46-year-old male presents for evaluation of right flank pain, increased urinary frequency and urgency. He reports that the urinary frequency and urgency started 2 days ago. He denies any dysuria. He reports 2 hours ago he developed sudden right-sided flank pain or to call his primary care physician and was referred here. The pain is an aching pain which is steady, constant, no aggravating or relieving factors. He's never had pain like this before. He rates it as a 6 out of 10. He reports that occasionally his urine looks dark but he denies any obvious hematuria. He endorses mild nausea but denies vomiting, diarrhea or constipation, testicular or scrotal pain. He reports that last night he had some sweats but denies any objective fevers. No history of renal stone. He denies any recent sexual activity. He denies any urethral discharge. No other complaints at this time. PFSH Past Medical History Hx Anticoagulant Therapy: Yes (asa) Asthma: Yes Cardiac Catheterization: Yes (rca stent) Cardiovascular Problems: Yes ([place] X3, HTN) COPD: Yes Diminished Hearing: No Hypertension: Yes Musculoskeletal: Yes (back pain) Neurologic: Yes (neuropathy) Respiratory: Yes (COPD, Asthma) Myocardial Infarction: Yes (x3) Past Surgical History Other Surgery: Yes (R achellies tendon) Social History Alcohol Use: Yes (RARE) Tobacco Use: Yes (1 pack per day) Substance Use: No Allergies-Medications (Allergen,Severity, Reaction): Coded Allergies: cortisone (Unverified Allergy, Severe, Swelling, 12/30/16) dichloralphenazone (Unverified Allergy, Severe, 12/30/16) erythromycin base (Unverified Allergy, Severe, 12/30/16) ibuprofen (Unverified Allergy, Severe, 12/30/16) isometheptene (Unverified Allergy, Severe, 12/30/16) Reported Meds & Prescriptions Reported Meds & Active Scripts Active Tylenol (Acetaminophen) 325 Mg Tab 650 Mg PO Q6H PRN Naproxen 500 Mg Tab 500 Mg PO BID 7 Days Lyrica (Pregabalin) 150 Mg Cap 150 Mg PO BID 7 Days Reported Metoprolol Tartrate 50 Mg Tab 50 Mg PO BID Lisinopril 20 Mg Tab 20 Mg PO DAILY Potassium Chloride Microencaps 20 Meq Tab 20 Meq PO DAILY Lasix (Furosemide) 40 Mg Tab 40 Mg PO DAILY Proair Respiclick Inh (Albuterol Sulfate) 90 Mcg/Act Aerp 1 Puff INH Q4H PRN Aspirin 81 Mg Chew 81 Mg CHEW DAILY Review of Systems Except as stated in HPI: all other systems reviewed are Neg Physical Exam Narrative GENERAL: Pleasant well-developed well-nourished male in no acute distress SKIN: Warm and dry. HEAD: Atraumatic. Normocephalic. EYES: Pupils equal and round. No scleral icterus. No injection or drainage. ENT: No nasal bleeding or discharge. Mucous membranes pink and moist. NECK: Trachea midline. No JVD. CARDIOVASCULAR: Regular rate and rhythm. No murmur appreciated. RESPIRATORY: No accessory muscle use. Clear to auscultation. Breath sounds equal bilaterally. GASTROINTESTINAL: Abdomen soft, non-tender, nondistended. Hepatic and splenic margins not palpable. examination is normal without any testicular tenderness. There is no inguinal hernia. MUSCULOSKELETAL: No obvious deformities. No edema. NEUROLOGICAL: Awake and alert. No obvious cranial nerve deficits. Motor grossly within normal limits. Normal speech. PSYCHIATRIC: Appropriate mood and affect; insight and judgment normal. Data Data Last Documented VS Orders Orders Urinalysis - C+S If Indicated (12/30/16 21:42) Complete Blood Count With Diff (12/30/16 21:57) Comprehensive Metabolic Panel (12/30/16 21:57) Ct Abd/Pel W/O Iv Contrast (12/30/16 21:57) Iv Access Insert/Monitor (12/30/16 21:57) Ondansetron Inj (Zofran Inj) (12/30/16 22:00) Sodium Chlor 0.9% 1000 Ml Inj (Ns 1000 M (12/30/16 21:57) Acetaminophen (Tylenol) (12/30/16 22:45) Orphenadrine Inj (Norflex Inj) (12/30/16 22:45) Lidocaine 5% Patch.12 Hr (Lidoderm 5% Pa (12/30/16 22:45) Labs Laboratory Tests Test 12/30/16 21:55 12/30/16 22:10 Urine Color YELLOW Urine Turbidity CLEAR Urine pH 6.5 Urine Specific [place] 1.022 Urine Protein NEG mg/dL Urine Glucose (UA) NEG mg/dL Urine Ketones NEG mg/dL Urine Occult Blood NEG Urine Nitrite NEG Urine Bilirubin NEG Urine Urobilinogen 4.0 MG/DL Urine Leukocyte Esterase NEG Urine RBC 2 /hpf Urine Amorphous Sediment RARE Microscopic Urinalysis Comment CULT NOT INDICATED White Blood Count 7.9 TH/MM3 Red Blood Count 5.15 MIL/MM3 Hemoglobin 16.1 GM/DL Hematocrit 46.6 % Mean Corpuscular Volume 90.5 FL Mean Corpuscular Hemoglobin 31.3 PG Mean Corpuscular Hemoglobin Concent 34.6 % Red Cell Distribution Width 13.0 % Platelet Count 124 TH/MM3 Mean Platelet Volume 10.2 FL Neutrophils (%) (Auto) 62.0 % Lymphocytes (%) (Auto) 25.5 % Monocytes (%) (Auto) 7.7 % Eosinophils (%) (Auto) 3.8 % Basophils (%) (Auto) 1.0 % Neutrophils # (Auto) 4.9 TH/MM3 Lymphocytes # (Auto) 2.0 TH/MM3 Monocytes # (Auto) 0.6 TH/MM3 Eosinophils # (Auto) 0.3 TH/MM3 Basophils # (Auto) 0.1 TH/MM3 CBC Comment DIFF FINAL Differential Comment Blood Urea Nitrogen 13 MG/DL Creatinine 1.05 MG/DL Random Glucose 95 MG/DL Total Protein 7.1 GM/DL Albumin 3.9 GM/DL Calcium Level 9.7 MG/DL Alkaline Phosphatase 70 U/L Aspartate Amino Transf (AST/SGOT) 29 U/L Alanine Aminotransferase (ALT/SGPT) 35 U/L Total Bilirubin 0.4 MG/DL Sodium Level 139 MEQ/L Potassium Level 4.0 MEQ/L Chloride Level 104 MEQ/L Carbon Dioxide Level 28.0 MEQ/L Anion Gap 7 MEQ/L Estimat Glomerular Filtration Rate 76 ML/MIN [facility] Medical Decision Making Medical Screen Exam Complete: Yes Emergency Medical Condition: Yes Medical Record Reviewed: Yes Interpretation(s) CT abdomen and pelvis CONCLUSION: No acute abnormality demonstrated. Normal appendix and right kidney. Tiny nonobstructing stone left kidney unchanged. Differential Diagnosis Renal stone, hydronephrosis, pyelonephritis, muscle spasm Narrative Course 46-year-old male who has been having increased urinary frequency and urgency for 2 days presents now with sudden onset right flank pain 2 hours ago. He endorses mild nausea as well as night sweats yesterday. Physical examination is benign. Plan a basic lab work, urinalysis, CT abdomen and pelvis. The patient will be given IV fluids and Zofran. The patient initially had Norflex, Flexeril and Tylenol on his medication allergy list however he reports that he is not allergic to these medications and is requesting that they be removed from his record. 2300: At the end of my shift this patient was signed out pending test results. Scripts Acetaminophen (Tylenol) 325 Mg Tab 650 MG PO Q6H Y for PAIN SCALE 1 TO 4, #20 TAB 0 Refills Prov: Ashley Cullen 12/30/16 Condition: Stable Jaylen Kurtz Dec 30, 2016 22:01
[2016-12-30 22:26] LABS: BLOOD, URINE NEG (NEG); COMMENT (UR) CULT NOT INDICATED; CULTURE IF INDICATED CULT NOT INDICATED; GLUCOSE,URINE NEG (NEG); KETONE, URINE NEG (NEG); NITRITE,URINE NEG (NEG); PH, URINE 6.5 (5.0-8.5); URINE COLOR YELLOW (YELLW/STRAW)
[2016-12-30 22:44] LABS: AUTOMATED NEUTROPHIL # 4.9 TH/MM3 (1.8-7.7); BASOPHIL # 0.1 TH/MM3 (0-0.2); EOSINOPHIL # 0.3 TH/MM3 (0-0.4); EOSINOPHIL % 3.8 % (0.0-4.0); HEMATOCRIT 46.6 % (39.0-51.0); HEMO FLAGS DIFF FINAL; LYMPH % 25.5 % (9.0-44.0); MEAN CELL VOLUME 90.5 FL (80.0-100.0); MEAN CORPUSCULAR HEMOGLOBIN 31.3 PG (27.0-34.0); MEAN CORPUSCULAR HGB CONC 34.6 % (32.0-36.0); MONO % 7.7 % (0.0-8.0); PLATELET COUNT 124 TH/MM3 (150-450); RED BLOOD COUNT 5.15 MIL/MM3 (4.50-5.90); WHITE BLOOD COUNT 7.9 TH/MM3 (4.0-11.0)
[2016-12-30] MEDS ORDERED: ACETAMINOPHEN 325 MG TAB PO ONE (22:45)
[2016-12-30] MEDS ORDERED: ORPHENADRINE INJ 60 MG/2 ML AMP IM ONE (22:45)
[2016-12-30] MEDS ORDERED: LIDOCAINE HCL 5% PATCH T-DERMAL ONE (22:45)
--- NOTE | 2016-12-30 22:45 | RADRPT ---
EXAM DATE/TIME: 12/30/2016 22:10 [facility] COMPARISON: CT ABDOMEN & PELVIS W CONTRAST, November 21, 2016, 7:57. INDICATIONS : Right flank pain with frequent urination. ORAL CONTRAST: No oral contrast ingested. RADIATION DOSE: 31.35 CTDIvol (mGy) ; High dose protocol; Patient body habitus MEDICAL HISTORY : Hypertension. SURGICAL HISTORY : None. ENCOUNTER: Initial ACUITY: 2 days PAIN SCALE: 8/10 LOCATION: Right flank TECHNIQUE: Volumetric scanning of the abdomen and pelvis was performed. Using automated exposure control and ad justment of the mA and/or kV according to patient size, radiation dose was kept as low as reasonably achievable to obtain optimal diagnostic quality images. DICOM format image data is available electro nically for review and comparison. FINDINGS: LOWER LUNGS: The visualized lower lungs are clear. LIVER: Homogeneous density without lesion. There is no dilation of the biliary tree. No calcified gallston es. SPLEEN: Normal size without lesion. PANCREAS: Within normal limits. KIDNEYS: 1 mm nonobstructing stone again seen left mid zone. No stone or hydronephrosis on the right. ADRENAL GLANDS: Within normal limits. VASCULAR: There is no aortic aneurysm. BOWEL/MESENTERY: The stomach, small bowel, and colon demonstrate no acute abnormality. Small hiatal hernia. There is no free intraperitoneal air or fluid. Normal appendix. ABDOMINAL WALL: Within normal limits. RETROPERITONEUM: There is no lymphadenopathy. BLADDER: No wall thickening or mass. REPRODUCTIVE: Within normal limits. INGUINAL: There is no lymphadenopathy or hernia. MUSCULOSKELETAL: Within normal limits for patient age. CONCLUSION: No acute abnormality demonstrated. Normal appendix and right kidney. Tiny nonobstructing stone left k idney unchanged. Kip Obando MD on December 30, 2016 at 22:41 Board Certified Radiologist. This report was verified electronically.
[2016-12-30 23:03] LABS: ALKALINE PHOSPHATASE 70 U/L (45-117); ALT (GPT) 35 U/L (12-78); TOTAL BILIRUBIN ADULT 0.4 MG/DL (0.2-1.0)
--- NOTE | 2016-12-30 23:05 | PD ---
Physical Exam Narrative I, Dr. Cullen, have reviewed the advance practice practitioner's documentation and am in agreement, met with the patient face to face, made the diagnosis, and the medical decision making was done by me. *My assessment and Findings: Nephrolithiasis vs. musculoskeletal pain 46yo M with right lower back pain. Pt is well appearing. Denies any fever. Labs reviewed, no leukocytosis. Mild thrombocytopenia which is at baseline. CMP unremarkable. UA negative. CTa/p showed no acute abnormality. Pt given pain medication. Pt reevaluated at bedside with improvement. Return precautions given. Data Data Last Documented VS Vital Signs Date Time Temp Pulse Resp B/P (MAP) Pulse Ox O2 Delivery O2 Flow Rate FiO2 12/30/16 21:23 98.2 94 16 165/97 (119) 96 Room Air Orders Orders Urinalysis - C+S If Indicated (12/30/16 21:42) Complete Blood Count With Diff (12/30/16 21:57) Comprehensive Metabolic Panel (12/30/16 21:57) Ct Abd/Pel W/O Iv Contrast (12/30/16 21:57) Iv Access Insert/Monitor (12/30/16 21:57) Ondansetron Inj (Zofran Inj) (12/30/16 22:00) Sodium Chlor 0.9% 1000 Ml Inj (Ns 1000 M (12/30/16 21:57) Acetaminophen (Tylenol) (12/30/16 22:45) Orphenadrine Inj (Norflex Inj) (12/30/16 22:45) Lidocaine 5% Patch.12 Hr (Lidoderm 5% Pa (12/30/16 22:45) Labs Laboratory Tests Test 12/30/16 21:55 12/30/16 22:10 Urine Color YELLOW Urine Turbidity CLEAR Urine pH 6.5 Urine Specific [place] 1.022 Urine Protein NEG mg/dL Urine Glucose (UA) NEG mg/dL Urine Ketones NEG mg/dL Urine Occult Blood NEG Urine Nitrite NEG Urine Bilirubin NEG Urine Urobilinogen 4.0 MG/DL Urine Leukocyte Esterase NEG Urine RBC 2 /hpf Urine Amorphous Sediment RARE Microscopic Urinalysis Comment CULT NOT INDICATED White Blood Count 7.9 TH/MM3 Red Blood Count 5.15 MIL/MM3 Hemoglobin 16.1 GM/DL Hematocrit 46.6 % Mean Corpuscular Volume 90.5 FL Mean Corpuscular Hemoglobin 31.3 PG Mean Corpuscular Hemoglobin Concent 34.6 % Red Cell Distribution Width 13.0 % Platelet Count 124 TH/MM3 Mean Platelet Volume 10.2 FL Neutrophils (%) (Auto) 62.0 % Lymphocytes (%) (Auto) 25.5 % Monocytes (%) (Auto) 7.7 % Eosinophils (%) (Auto) 3.8 % Basophils (%) (Auto) 1.0 % Neutrophils # (Auto) 4.9 TH/MM3 Lymphocytes # (Auto) 2.0 TH/MM3 Monocytes # (Auto) 0.6 TH/MM3 Eosinophils # (Auto) 0.3 TH/MM3 Basophils # (Auto) 0.1 TH/MM3 CBC Comment DIFF FINAL Differential Comment Blood Urea Nitrogen 13 MG/DL Creatinine 1.05 MG/DL Random Glucose 95 MG/DL Total Protein 7.1 GM/DL Albumin 3.9 GM/DL Calcium Level 9.7 MG/DL Alkaline Phosphatase 70 U/L Aspartate Amino Transf (AST/SGOT) 29 U/L Alanine Aminotransferase (ALT/SGPT) 35 U/L Total Bilirubin 0.4 MG/DL Sodium Level 139 MEQ/L Potassium Level 4.0 MEQ/L Chloride Level 104 MEQ/L Carbon Dioxide Level 28.0 MEQ/L Anion Gap 7 MEQ/L Estimat Glomerular Filtration Rate 76 ML/MIN MDM Supervised Visit with [place]FE[place]: Yes Diagnosis Primary Impression: Low back pain Qualified Codes: M54.5 - Low back pain Patient Instructions: General Instructions Departure Forms: Tests/Procedures Additional Instruction: Please follow up with your primary care physician in 3-7 days. Return to the ED if symptoms worsen. Med/Other Pt SpecificInfo: Prescription(s) given Scripts Acetaminophen (Tylenol) 325 Mg Tab 650 MG PO Q6H Y for PAIN SCALE 1 TO 4, #20 TAB 0 Refills Prov: Ashley Cullen 12/30/16 Disposition: 01 DISCHARGE HOME Condition: Stable CullenAshley DO Dec 30, 2016 23:05
[2016-12-30 23:08] LABS: ANION GAP 7 MEQ/L (5-15); AST (GOT) 29 U/L (15-37); BLOOD UREA NITROGEN 13 MG/DL (7-18); CHLORIDE 104 MEQ/L (98-107); GLOMERULAR FILTRATION RATE 76 ML/MIN (>89); SODIUM (NA) 139 MEQ/L (136-145)
[2016-12-30] MEDS ORDERED: TYLE325T PO (23:59)
[2016-12-31 00:20] VITALS: BP 150/90; PULSE 79; RESP 16; O2SAT 97
== END 2016-12-31 00:30 | disposition home or self-care (01) ==
LOC: NEPC 21:21
DX: M54.5 Low back pain (principal); I25.10 Atherosclerotic heart disease of native coronary artery without angina pectoris; I10 Essential (primary) hypertension; Z95.5 Presence of coronary angioplasty implant and graft; J44.9 Chronic obstructive pulmonary disease, unspecified
CPT/HCPCS: 74176; 80053; 81001; 85025; 96361; 96372; 96374; 99285; J2405; J7030

== ENCOUNTER 2017-01-15 23:16 | Emergency (ER) | payer BC ==
[~2017-01-15] VITALS: Ht 180.3 cm; Wt 130.0 kg
[~2017-01-15 23:16] MED LIST changes: +TYLE325T PO
[2017-01-15 23:17] VITALS: BP 185/118; PULSE 101; RESP 16; TEMP 97.8; O2SAT 95
[2017-01-15] MEDS ORDERED: IOHEXOL 350 MG/ML 10 ML VIAL (for RAD DIAG) IVCONTRAST ONE (23:17)
[2017-01-15] MEDS ORDERED: SODIUM CHLOR 0.9% 1000 ML INJ 1,000 ML IV SCH (23:44)
[2017-01-15] MEDS ORDERED: ONDANSETRON HCL 4 MG/2 ML VIAL IVP ONE (23:45)
[2017-01-15] MEDS ORDERED: SODIUM CHLORIDE 0.9% FLUSH 10 ML FLUSH IV FLUSH PRN (23:45)
[2017-01-15] MEDS ORDERED: HYDROmorphone HCL PF 1 MG/ML VIAL IVS ONE (23:45)
--- NOTE | 2017-01-15 23:53 | PD ---
HPI Chief Complaint: Fall Time Seen by Provider: 23:44 Travel History International Travel<30 days: No Contact w/Intl Traveler<30days: No Traveled to known affect area: No History of Present Illness HPI 46-year-old male patient presents to the ER today because he states that he was feeling weak, and fell hitting the right side of his abdomen this morning, denies any head injury or loss of consciousness. He is currently complaining of severe 10 out of 10 right lower quadrant abdominal pains where he states he hit the floor. He denies any other injuries. He states that the pain worsens with any kind of movement and he has been nauseous but denies any recent vomiting. Modifying Factors: None Associated Signs & Symptoms: Weak, fall, right lower quadrant abdominal injury Risk Factors: None PFSH Past Medical History Hx Anticoagulant Therapy: Yes (asa) Asthma: Yes Cardiac Catheterization: Yes (rca stent) Cardiovascular Problems: Yes ([place] X3, HTN) COPD: Yes Diminished Hearing: No Hypertension: Yes Musculoskeletal: Yes (back pain) Neurologic: Yes (neuropathy) Respiratory: Yes (COPD, Asthma) Myocardial Infarction: Yes (x3) Past Surgical History Other Surgery: Yes (R achellies tendon) Social History Alcohol Use: Yes (RARE) Tobacco Use: Yes (1 pack per day) Substance Use: No Allergies-Medications (Allergen,Severity, Reaction): Coded Allergies: cortisone (Unverified Allergy, Severe, Swelling, 01/16/17) dichloralphenazone (Unverified Allergy, Severe, 01/16/17) erythromycin base (Unverified Allergy, Severe, 01/16/17) ibuprofen (Unverified Allergy, Severe, 01/16/17) isometheptene (Unverified Allergy, Severe, 01/16/17) Reported Meds & Prescriptions Reported Meds & Active Scripts Active Tylenol (Acetaminophen) 325 Mg Tab 650 Mg PO Q6H PRN Naproxen 500 Mg Tab 500 Mg PO BID 7 Days Lyrica (Pregabalin) 150 Mg Cap 150 Mg PO BID 7 Days Reported Metoprolol Tartrate 50 Mg Tab 50 Mg PO BID Lisinopril 20 Mg Tab 20 Mg PO DAILY Potassium Chloride Microencaps 20 Meq Tab 20 Meq PO DAILY Lasix (Furosemide) 40 Mg Tab 40 Mg PO DAILY Proair Respiclick Inh (Albuterol Sulfate) 90 Mcg/Act Aerp 1 Puff INH Q4H PRN Aspirin 81 Mg Chew 81 Mg CHEW DAILY Review of Systems Except as stated in HPI: all other systems reviewed are Neg Physical Exam Narrative GENERAL: Well-developed middle age white male patient currently in moderate distress. Awake and oriented 3. SKIN: Focused skin assessment warm/dry. HEAD: Atraumatic. Normocephalic. EYES: Pupils equal and round. No scleral icterus. No injection or drainage. ENT: No nasal bleeding or discharge. Mucous membranes pink and moist. NECK: Trachea midline. No JVD. CARDIOVASCULAR: Regular rate and rhythm. No murmur appreciated. RESPIRATORY: No accessory muscle use. Clear to auscultation. Breath sounds equal bilaterally. GASTROINTESTINAL: Abdomen soft, severe right lower quadrant tenderness with some guarding but no obvious rebound, nondistended. Hepatic and splenic margins not palpable. MUSCULOSKELETAL: No obvious deformities. No clubbing. No cyanosis. No edema. NEUROLOGICAL: Awake and alert. No obvious cranial nerve deficits. Motor grossly within normal limits. Normal speech. PSYCHIATRIC: Appropriate mood and affect; insight and judgment normal. Data Data Last Documented VS Vital Signs Date Time Temp Pulse Resp B/P (MAP) Pulse Ox O2 Delivery O2 Flow Rate FiO2 01/16/17 03:43 97 20 160/95 (116) 96 01/16/17 00:58 96 01/15/17 23:17 97.8 Room Air Orders Orders Complete Blood Count With Diff (01/15/17 23:44) Comprehensive Metabolic Panel (01/15/17 23:44) Lipase (01/15/17 23:44) Prothrombin Time / Inr (Pt) (01/15/17 23:44) Act Partial Throm Time (Ptt) (01/15/17 23:44) Urinalysis - C+S If Indicated (01/15/17 23:44) Ct Abd/Pel W Iv Contrast(Rout) (01/15/17 23:44) Iv Access Insert/Monitor (01/15/17 23:44) Ecg Monitoring (01/15/17 23:44) Oximetry (01/15/17 23:44) Ondansetron Inj (Zofran Inj) (01/15/17 23:45) Sodium Chlor 0.9% 1000 Ml Inj (Ns 1000 M (01/15/17 23:44) Sodium Chloride 0.9% Flush (Ns Flush) (01/15/17 23:45) Electrocardiogram (01/15/17 23:44) Hydromorphone Pf Inj (Dilaudid Pf Inj) (01/15/17 23:45) Lactic Acid Sepsis Protocol (01/15/17 23:44) Blood Culture (01/15/17 23:44) Iohexol 350 Inj (Omnipaque 350 Inj) (01/15/17 23:17) Labs Laboratory Tests Test 01/15/17 23:44 01/15/17 23:50 01/15/17 23:52 Lactic Acid Level 1.5 mmol/L Urine Color YELLOW Urine Turbidity CLEAR Urine pH 7.0 Urine Specific [place] 1.019 Urine Protein NEG mg/dL Urine Glucose (UA) NEG mg/dL Urine Ketones NEG mg/dL Urine Occult Blood NEG Urine Nitrite NEG Urine Bilirubin NEG Urine Urobilinogen 2.0 MG/DL Urine Leukocyte Esterase NEG Urine RBC LESS THAN 1 /hpf Urine WBC LESS THAN 1 /hpf Microscopic Urinalysis Comment CULT NOT INDICATED White Blood Count 8.1 TH/MM3 Red Blood Count 5.50 MIL/MM3 Hemoglobin 16.6 GM/DL Hematocrit 49.2 % Mean Corpuscular Volume 89.6 FL Mean Corpuscular Hemoglobin 30.3 PG Mean Corpuscular Hemoglobin Concent 33.8 % Red Cell Distribution Width 13.5 % Platelet Count 135 TH/MM3 Mean Platelet Volume 9.5 FL Neutrophils (%) (Auto) 61.0 % Lymphocytes (%) (Auto) 26.5 % Monocytes (%) (Auto) 8.4 % Eosinophils (%) (Auto) 3.4 % Basophils (%) (Auto) 0.7 % Neutrophils # (Auto) 4.9 TH/MM3 Lymphocytes # (Auto) 2.1 TH/MM3 Monocytes # (Auto) 0.7 TH/MM3 Eosinophils # (Auto) 0.3 TH/MM3 Basophils # (Auto) 0.1 TH/MM3 CBC Comment DIFF FINAL Differential Comment Prothrombin Time 10.1 SEC Prothromb Time International Ratio 0.9 RATIO Activated Partial Thromboplast Time 27.8 SEC Blood Urea Nitrogen 10 MG/DL Creatinine 0.93 MG/DL Random Glucose 103 MG/DL Total Protein 7.1 GM/DL Albumin 3.9 GM/DL Calcium Level 9.5 MG/DL Alkaline Phosphatase 66 U/L Aspartate Amino Transf (AST/SGOT) 36 U/L Alanine Aminotransferase (ALT/SGPT) 57 U/L Total Bilirubin 0.4 MG/DL Sodium Level 139 MEQ/L Potassium Level 4.3 MEQ/L Chloride Level 106 MEQ/L Carbon Dioxide Level 26.2 MEQ/L Anion Gap 7 MEQ/L Estimat Glomerular Filtration Rate 88 ML/MIN Lipase 204 U/L MDM Medical Decision Making Medical Screen Exam Complete: Yes Emergency Medical Condition: Yes Medical Record Reviewed: Yes Interpretation(s) Laboratory Tests Test 01/15/17 23:44 01/15/17 23:50 01/15/17 23:52 Platelet Count 135 TH/MM3 (150-450) Monocytes (%) (Auto) 8.4 % (0.0-8.0) Estimat Glomerular Filtration Rate 88 ML/MIN (>89) Differential Diagnosis Right lower quadrant abdominal pain after fall, general weakness, nausea: Abdominal wall contusion versus diverticulitis versus intra-abdominal injuries Narrative Course CAT scan was ordered for further evaluation or injuries. It did not show any signs of acute intra-abdominal injuries or processes. At this point, patient is released with follow-up to primary care physician. Return for any worsening in symptoms as needed. The plan has been discussed with the patient and he states understanding. Diagnosis Primary Impression: Abdominal pain Med/Other Pt SpecificInfo: Prescription(s) given (tramadol) Disposition: 01 DISCHARGE HOME Condition: Stable SoonAugust gomez MD Jan 15, 2017 23:53
[2017-01-16 00:17] LABS: AUTOMATED NEUTROPHIL # 4.9 TH/MM3 (1.8-7.7); BASOPHIL # 0.1 TH/MM3 (0-0.2); BASOPHIL % 0.7 % (0.0-2.0); EOSINOPHIL # 0.3 TH/MM3 (0-0.4); EOSINOPHIL % 3.4 % (0.0-4.0); HEMATOCRIT 49.2 % (39.0-51.0); HEMO FLAGS DIFF FINAL; LYMPH % 26.5 % (9.0-44.0); LYMPHOCYTE # 2.1 TH/MM3 (1.0-4.8); MEAN CELL VOLUME 89.6 FL (80.0-100.0); MEAN CORPUSCULAR HEMOGLOBIN 30.3 PG (27.0-34.0); MEAN CORPUSCULAR HGB CONC 33.8 % (32.0-36.0); MONO % 8.4 % (0.0-8.0); PLATELET COUNT 135 TH/MM3 (150-450); RED CELL DISTRIBUTION WIDTH 13.5 % (11.6-17.2); WHITE BLOOD COUNT 8.1 TH/MM3 (4.0-11.0)
[2017-01-16 00:32] LABS: APTT (PATIENT) 27.8 SEC (24.3-30.1); INTERNATIONAL NORMALIZED RATIO 0.9 RATIO; PROTHROMBIN TIME - PATIENT 10.1 SEC (9.8-11.6)
[2017-01-16 00:37] LABS: ALT (GPT) 57 U/L (12-78); ANION GAP 7 MEQ/L (5-15); AST (GOT) 36 U/L (15-37); BICARBONATE 26.2 MEQ/L (21.0-32.0); BLOOD UREA NITROGEN 10 MG/DL (7-18); CHLORIDE 106 MEQ/L (98-107); GLOMERULAR FILTRATION RATE 88 ML/MIN (>89); POTASSIUM 4.3 MEQ/L (3.5-5.1); SODIUM (NA) 139 MEQ/L (136-145)
[2017-01-16 00:39] LABS: ALKALINE PHOSPHATASE 66 U/L (45-117); TOTAL BILIRUBIN ADULT 0.4 MG/DL (0.2-1.0)
[2017-01-16 00:49] LABS: BLOOD, URINE NEG (NEG); COMMENT (UR) CULT NOT INDICATED; CULTURE IF INDICATED CULT NOT INDICATED; GLUCOSE,URINE NEG (NEG); KETONE, URINE NEG (NEG); NITRITE,URINE NEG (NEG); URINE COLOR YELLOW (YELLW/STRAW)
--- NOTE | 2017-01-16 03:03 | RADRPT ---
EXAM DATE/TIME: 01/16/2017 00:49 [facility] COMPARISON: CT ABDOMEN & PELVIS W/O CONTRAST, December 30, 2016, 22:10. CT ABDOMEN & PELVIS W CONTRAST, November 21, 2016, 7:57. INDICATIONS : Right lower qaudrant pain after fall. IV CONTRAST: 75 cc Omnipaque 350 (iohexol) IV ORAL CONTRAST: No oral contrast ingested. RADIATION DOSE: 30.46 CTDIvol (mGy) ; Patient body habitus MEDICAL HISTORY : Cardiovascular disease. Hypertension. Chronic obstructive pulmonary disease. SURGICAL HISTORY : Coronary artery stent. ENCOUNTER: Initial ACUITY: 1 day PAIN SCALE: 10/10 LOCATION: Right lower quadrant TECHNIQUE: Volumetric scanning of the abdomen and pelvis was performed. Using automated exposure control and ad justment of the mA and/or kV according to patient size, radiation dose was kept as low as reasonably achievable to obtain optimal diagnostic quality images. DICOM format image data is available electro nically for review and comparison. FINDINGS: LOWER LUNGS: A 5 mm pulmonary nodule is seen within the right lung base. This portion of the lung base was not wit hin the [id number] on the prior study. LIVER: Homogeneous density without lesion. There is no dilation of the biliary tree. No calcified gallston es. SPLEEN: Normal size without lesion. PANCREAS: Within normal limits. KIDNEYS: Normal in size and shape. There is no mass or hydronephrosis. A 2 mm nonobstructing left renal stone . ADRENAL GLANDS: Within normal limits. VASCULAR: There is no aortic aneurysm. BOWEL/MESENTERY: The stomach, small bowel, and colon demonstrate no acute abnormality. There is no free intraperitone al air or fluid. ABDOMINAL WALL: Within normal limits. RETROPERITONEUM: There is no lymphadenopathy. BLADDER: No wall thickening or mass. REPRODUCTIVE: Within normal limits. INGUINAL: There is no lymphadenopathy or hernia. MUSCULOSKELETAL: Within normal limits for patient age. CONCLUSION: 1. No acute abnormality. 2. 2 mm nonobstructing left renal stone. 3. 4. 5 mm right lower lobe pulmonary nodule.The findings described above include a newly detected solid pulmonary nodule of 4-6 mm average diameter. Guidelines from the Fleischner Society for the follow-u p and management of newly detected indeterminate pulmonary nodules in persons >34 years old depend on nodule size (average of length and width) and underlying risk factors (including smoking and other r isk factors). Please consider the following recommendations after clinical assessment of risk factor s. For 4-6 mm nodules: 5. In low risk patients, follow-up CT at 12 months; if unchanged, no further follow-up needed. In hi gh risk patients, initial follow-up CT at 6-12 months, then 18-24 months if no change. Maxim Cook Jr., MD on January 16, 2017 at 1:12 Board Certified Radiologist. This report was verified electronically.
[2017-01-16 03:43] VITALS: BP 160/95
== END 2017-01-16 03:58 | disposition home or self-care (01) ==
LOC: NEPE 23:16
DX: R10.31 Right lower quadrant pain (principal); I10 Essential (primary) hypertension; F17.200 Nicotine dependence, unspecified, uncomplicated; B95.7 Other staphylococcus as the cause of diseases classified elsewhere
CPT/HCPCS: 74177; 80053; 81001; 83605; 83690; 85025; 85610; 85730; 86403; 87040; 87077; 87186; 87205; 96374; 96375; 99285; J1170; J2405; J7030; Q9967

== ENCOUNTER → 2017-01-19 | Day surgery (SDC) | payer BC ==
[~2017-01-19] MED LIST changes: +ACETAMINOPHEN/HYDROcodone 325 MG/5 MG TAB ONE; +BUPIVACAINE LIPOSOME PF 1.3% 20 ML VIAL ONE; +CEPH-460 PO; +CYCL1TAB29 PO; +DEXAMETHASONE SOD PHOS 4 MG/ML VIAL IV ONE; +LACTATED RINGER'S 1000 ML INJ 1,000 ML IV ONE; +LIDOCAINE HCL 1% PF 5 ML AMPULE OTHER ONE; +MIDAZOLAM HCL 2 MG/2 ML VIAL ONE; +MORPHINE SULFATE 4 MG/ML INJ ONE; +MUPI2OIN TOPICAL; +ONDANSETRON HCL 4 MG/2 ML VIAL IV PUSH ONE; +PROPOFOL 200 MG/20 ML AMP IV ONE; +SODIUM CHLORIDE 0.9% 20 ML VIAL ONE; +ceFAZolin 2 GM PREMIX 50 ML ONE
== END | disposition home or self-care (01) ==
LOC: ESDC 09:03
PROVIDERS: ATTEND Surgery
DX: K42.9 Umbilical hernia without obstruction or gangrene (principal)
CPT/HCPCS: 00750; 49585; C9290; J0690; J1100; J2250; J2270; J2405; J3010; J7120

== ENCOUNTER 2017-01-22 22:41 | Emergency (ER) | payer BC ==
[~2017-01-22] VITALS: Ht 180.3 cm; Wt 130.0 kg
[~2017-01-22 22:41] MED LIST changes: -ACETAMINOPHEN/HYDROcodone 325 MG/5 MG TAB ONE; -BUPIVACAINE LIPOSOME PF 1.3% 20 ML VIAL ONE; -CEPH-460 PO; -CYCL1TAB29 PO; -DEXAMETHASONE SOD PHOS 4 MG/ML VIAL IV ONE; -LACTATED RINGER'S 1000 ML INJ 1,000 ML IV ONE; -LIDOCAINE HCL 1% PF 5 ML AMPULE OTHER ONE; -MIDAZOLAM HCL 2 MG/2 ML VIAL ONE; -MORPHINE SULFATE 4 MG/ML INJ ONE; -MUPI2OIN TOPICAL; -ONDANSETRON HCL 4 MG/2 ML VIAL IV PUSH ONE; -PROPOFOL 200 MG/20 ML AMP IV ONE; -SODIUM CHLORIDE 0.9% 20 ML VIAL ONE; -ceFAZolin 2 GM PREMIX 50 ML ONE
[2017-01-22 22:45] VITALS: BP 178/97; PULSE 98; RESP 16; TEMP 98.4; O2SAT 96
[2017-01-22] MEDS ORDERED: CYCL1TAB29 PO (23:53)
[2017-01-22] MEDS ORDERED: CEPH-460 PO (23:53)
--- NOTE | 2017-01-22 23:54 | PD ---
HPI Chief Complaint: Pain: Acute or Chronic Time Seen by Provider: 23:41 Travel History International Travel<30 days: No Contact w/Intl Traveler<30days: No Traveled to known affect area: No History of Present Illness HPI 46-year-old male complains of abdominal pain. Patient status post abdominal hernia repair 6 days ago. Patient states that he noticed a blister around with dressing around the abdominal wall surgical site. Patient states that he has persistent pain around the surgical site. Patient is on chronic pain medication and taking Topock 7.5 for pain. Patient denies any fever chills. Patient denies any nausea vomiting diarrhea. Patient states that he change dressing every 3 days. PFSH Past Medical History Hx Anticoagulant Therapy: Yes (asa) Asthma: Yes Cardiac Catheterization: Yes (rca stent) Cardiovascular Problems: Yes ([place] X3, HTN) COPD: Yes Diminished Hearing: No Hypertension: Yes Musculoskeletal: Yes (back pain) Neurologic: Yes (neuropathy) Respiratory: Yes (COPD, Asthma) Myocardial Infarction: Yes (x3) Tetanus Vaccination: Unknown Past Surgical History Abdominal Surgery: Yes (unmbelical hernia repair) Other Surgery: Yes (R achellies tendon) Social History Alcohol Use: Yes (RARE) Tobacco Use: Yes (1 pack per day) Substance Use: No Allergies-Medications (Allergen,Severity, Reaction): Coded Allergies: cortisone (Unverified Allergy, Severe, Swelling, 01/16/17) dichloralphenazone (Unverified Allergy, Severe, 01/16/17) erythromycin base (Unverified Allergy, Severe, 01/16/17) ibuprofen (Unverified Allergy, Severe, 01/16/17) isometheptene (Unverified Allergy, Severe, 01/16/17) Reported Meds & Prescriptions Reported Meds & Active Scripts Active Tylenol (Acetaminophen) 325 Mg Tab 650 Mg PO Q6H PRN Naproxen 500 Mg Tab 500 Mg PO BID 7 Days Lyrica (Pregabalin) 150 Mg Cap 150 Mg PO BID 7 Days Reported Metoprolol Tartrate 50 Mg Tab 50 Mg PO BID Lisinopril 20 Mg Tab 20 Mg PO DAILY Potassium Chloride Microencaps 20 Meq Tab 20 Meq PO DAILY Lasix (Furosemide) 40 Mg Tab 40 Mg PO DAILY Proair Respiclick Inh (Albuterol Sulfate) 90 Mcg/Act Aerp 1 Puff INH Q4H PRN Aspirin 81 Mg Chew 81 Mg CHEW DAILY Review of Systems General / Constitutional: No: Fever Eyes: No: Visual changes HENT: No: Headaches Cardiovascular: No: Chest Pain or Discomfort Respiratory: No: Shortness of Breath Gastrointestinal: Positive: Abdominal Pain Genitourinary: No: Dysuria Musculoskeletal: No: Pain Skin: No Rash Neurologic: No: Weakness Psychiatric: No: Depression Endocrine: No: Polydipsia Hematologic/Lymphatic: No: Easy Bruising Physical Exam Narrative GENERAL: Well-nourished, well-developed patient. SKIN: Focused skin assessment warm/dry. HEAD: Normocephalic. EYES: No scleral icterus. No injection or drainage. NECK: Supple, trachea midline. No JVD or lymphadenopathy. CARDIOVASCULAR: Regular rate and rhythm without murmurs, gallops, or rubs. RESPIRATORY: Breath sounds equal bilaterally. No accessory muscle use. GASTROINTESTINAL: Abdomen soft, non-tender, nondistended. MUSCULOSKELETAL: No cyanosis, or edema. BACK: Nontender without obvious deformity. No CVA tenderness. Patient has a small blister on the left lateral aspect of the surgical wound around the umbilical area. No redness no swelling no induration no discharge noted. Mild irritation associated with the dressing. Data Data Last Documented VS Vital Signs Date Time Temp Pulse Resp B/P (MAP) Pulse Ox O2 Delivery O2 Flow Rate FiO2 01/22/17 22:45 98.4 98 16 178/97 (124) 96 Room Air Orders Orders Wound Care (01/22/17 23:47) MDM Medical Decision Making Medical Screen Exam Complete: Yes Emergency Medical Condition: Yes Differential Diagnosis Differential diagnosis including local irritation from dressing, cellulitis . Narrative Course 46-year-old male requesting surgical wound check. Patient had blister associate with the dressing. Most likely local irritation. No evidence of infection. Dressing changed. Diagnosis Primary Impression: Encounter for post surgical wound check Patient Instructions: General Instructions Additional Instructions: Keflex as directed. Flexeril as directed. Follow-up with personal physician. Return if increasing redness swelling or worse. Med/Other Pt SpecificInfo: Prescription(s) given Scripts Cyclobenzaprine (Flexeril) 10 Mg Tab 10 MG PO TID for Muscle Spasm, #60 TAB 0 Refills Prov: Jacob Samuels MD 01/22/17 Cephalexin (Keflex) 500 Mg Capsule 500 MG PO TID for Infection, #15 CAP 0 Refills Prov: Jacob Samuels MD 01/22/17 Disposition: 01 DISCHARGE HOME Condition: Stable Jacob Samuels MD Jan 22, 2017 23:54
== END 2017-01-23 00:19 | disposition home or self-care (01) ==
LOC: NEPC 22:41
DX: Z48.00 Encounter for change or removal of nonsurgical wound dressing (principal); R10.9 Unspecified abdominal pain; J45.909 Unspecified asthma, uncomplicated; I10 Essential (primary) hypertension; I25.2 Old myocardial infarction; J44.9 Chronic obstructive pulmonary disease, unspecified; F17.200 Nicotine dependence, unspecified, uncomplicated; Z79.01 Long term (current) use of anticoagulants
CPT/HCPCS: 99281

== ENCOUNTER 2017-01-27 22:57 | Emergency (ER) | payer BC ==
[~2017-01-27] VITALS: Ht 180.3 cm; Wt 131.0 kg
[~2017-01-27 22:57] MED LIST changes: +CEPH-460 PO; +CYCL1TAB29 PO
[2017-01-27 22:59] VITALS: BP 156/90; PULSE 94; RESP 16; TEMP 98.6; O2SAT 96
[2017-01-28] MEDS ORDERED: MUPI2OIN TOPICAL (01:07)
--- NOTE | 2017-01-28 01:07 | PD ---
HPI Chief Complaint: Skin Problem Time Seen by Provider: 00:38 Travel History International Travel<30 days: No Contact w/Intl Traveler<30days: No Traveled to known affect area: No History of Present Illness HPI Patient is a 46-year-old male that presents to the emergency department for evaluation of a wound on his abdomen. Patient states that he was here several days ago and is here for a wound recheck. He denies any fever, chills, nausea, vomiting, pain. He has been applying topical antibiotic ointment and Lanacane [id number] cream. Patient had abdominal surgery approximately one and half weeks ago. PFSH Past Medical History Hx Anticoagulant Therapy: Yes (asa) Asthma: Yes Cardiac Catheterization: Yes (rca stent) Cardiovascular Problems: Yes ([place] X3, HTN) COPD: Yes Diminished Hearing: No Hypertension: Yes Musculoskeletal: Yes (back pain) Neurologic: Yes (neuropathy) Respiratory: Yes (COPD, Asthma) Myocardial Infarction: Yes (x3) Tetanus Vaccination: Unknown Influenza Vaccination: Yes Past Surgical History Abdominal Surgery: Yes (unmbelical hernia repair) Other Surgery: Yes (R achellies tendon) Social History Alcohol Use: Yes Tobacco Use: Yes (1 pack per day) Substance Use: No Allergies-Medications (Allergen,Severity, Reaction): Coded Allergies: cortisone (Unverified Allergy, Severe, Swelling, 01/16/17) dichloralphenazone (Unverified Allergy, Severe, 01/16/17) erythromycin base (Unverified Allergy, Severe, 01/16/17) ibuprofen (Unverified Allergy, Severe, 01/16/17) isometheptene (Unverified Allergy, Severe, 01/16/17) Reported Meds & Prescriptions Reported Meds & Active Scripts Active Mupirocin Topical (Mupirocin) 2 % Oint 1 Applic TOPICAL BID Flexeril (Cyclobenzaprine HCl) 10 Mg Tab 10 Mg PO TID Keflex (Cephalexin) 500 Mg Capsule 500 Mg PO TID Tylenol (Acetaminophen) 325 Mg Tab 650 Mg PO Q6H PRN Naproxen 500 Mg Tab 500 Mg PO BID 7 Days Lyrica (Pregabalin) 150 Mg Cap 150 Mg PO BID 7 Days Reported Metoprolol Tartrate 50 Mg Tab 50 Mg PO BID Lisinopril 20 Mg Tab 20 Mg PO DAILY Potassium Chloride Microencaps 20 Meq Tab 20 Meq PO DAILY Lasix (Furosemide) 40 Mg Tab 40 Mg PO DAILY Proair Respiclick Inh (Albuterol Sulfate) 90 Mcg/Act Aerp 1 Puff INH Q4H PRN Aspirin 81 Mg Chew 81 Mg CHEW DAILY Review of Systems Except as stated in HPI: all other systems reviewed are Neg Skin: Positive Rash, Positive Lesions Physical Exam Narrative GENERAL: Obese, well-developed, alert male. Resting in no acute distress. SKIN: Warm and dry. There is a 3 cm x 1 cm area of healing blister to left abdomen adjacent to the umbilicus. Skin on abdomen around incision site appears irritated, mildly erythematous and patchy. No induration around incision sites. No foul odor or drainage. Clear drainage noted from the area of the blister on the abdomen. HEAD: Normocephalic. EYES: No scleral icterus. No injection or drainage. NECK: Supple, trachea midline. No JVD or lymphadenopathy. CARDIOVASCULAR: Regular rate and rhythm without murmurs, gallops, or rubs. RESPIRATORY: Breath sounds equal bilaterally. No accessory muscle use. GASTROINTESTINAL: Abdomen soft, non-tender, nondistended. MUSCULOSKELETAL: No cyanosis, or edema. BACK: Nontender without obvious deformity. No CVA tenderness. Data Data Last Documented VS Vital Signs Date Time Temp Pulse Resp B/P (MAP) Pulse Ox O2 Delivery O2 Flow Rate FiO2 01/28/17 00:48 01/27/17 22:59 98.6 94 16 96 Room Air Orders Orders Wound Culture And Gram Stain (01/28/17 01:00) Ed Discharge Order (01/28/17 01:04) MDM Medical Decision Making Medical Screen Exam Complete: Yes Emergency Medical Condition: Yes Interpretation(s) Vital Signs Date Time Temp Pulse Resp B/P (MAP) Pulse Ox O2 Delivery O2 Flow Rate FiO2 01/28/17 00:48 01/27/17 22:59 98.6 94 16 156/90 (112) 96 Room Air Differential Diagnosis Abscess versus cellulitis versus contact dermatitis versus other Narrative Course Patient is a 46-year-old male presenting to the emergency department for evaluation of abdominal wound. He was seen and evaluated on 22 January, he was diagnosed with contact dermatitis at that time. He was written a prescription for Keflex, he reports compliance with his medication. He has been applying topical Lanacane ointment to the area. Physical examination appears consistent with contact dermatitis which was consistent with previous provider's note. There was clear drainage noted at the blister site, wound culture obtained and pending. It appears to be healing, the same nurse that saw him on the was also present for the examination. Patient was given a prescription for mupirocin ointment. He was encouraged to wash with soap and water, apply twice daily with a clean, nonocclusive dressing. He was advised to follow-up with his surgeon as scheduled. He was advised that if he had any surgical issues to call the surgeon immediately. He was encouraged to return to emergency department for any new or worsening symptoms. Patient verbalizes understanding of discharge instructions. Patient is stable for discharge. Diagnosis Primary Impression: Encounter for wound re-check Additional Impression: Contact dermatitis Qualified Codes: L23.1 - Allergic contact dermatitis due to adhesives Referrals: Chin Real MD 3 days Patient Instructions: Contact Dermatitis (ED), General Instructions Additional Instructions: Wash area with soap and water only do not scrub or apply peroxide Apply topical antibiotic ointment twice daily as prescribed Return to the Emergency department for any new or worsening symptoms Follow-up with your primary doctor and your surgeon as scheduled Med/Other Pt SpecificInfo: Prescription(s) given Scripts Mupirocin Topical (Mupirocin Topical) 2 % Oint 1 APPLIC TOPICAL BID for Mgmt Bacterial Infection, #22 GM 0 Refills Prov: Desiree Sow 01/28/17 Disposition: 01 DISCHARGE HOME Condition: Stable Desiree Sow Jan 28, 2017 01:07
== END 2017-01-28 01:12 | disposition home or self-care (01) ==
LOC: NEPD 22:57
DX: L23.1 Allergic contact dermatitis due to adhesives (principal)
CPT/HCPCS: 86403; 87070; 87077; 87186; 99281

== ENCOUNTER 2017-03-08 17:27 | Emergency (ER) | payer BC ==
[~2017-03-08 17:27] MED LIST changes: +ASPI-516 CHEW; -ASPI81CH CHEW; +CYCL10TA PO; -CYCL1TAB29 PO; +MUPI2OIN TOPICAL; -NAPR500T PO; +NAPR500T2 PO
[2017-03-08 17:29] VITALS: BP 213/112; PULSE 92; RESP 17; TEMP 98.3; O2SAT 99
[2017-03-08] MEDS ORDERED: SODIUM CHLOR 0.9% 1000 ML INJ 1,000 ML IV SCH (17:47)
--- NOTE | 2017-03-08 17:51 | PD ---
HPI Chief Complaint: Hypertension Time Seen by Provider: 17:44 Travel History International Travel<30 days: No Contact w/Intl Traveler<30days: No Traveled to known affect area: No History of Present Illness HPI 46-year-old male here for evaluation of headache and elevated blood pressure. She reports that he has had a gradual worsening headache over the last 2 days which she describes as fireworks going off in his brain. Pain is currently severe and associated with nausea and photophobia as well as slight dizziness. He states he checked his blood pressure at home and noticed it to be elevated. He takes metoprolol and lisinopril for blood pressure and reports compliance with these medications. No chest pain or dyspnea. No paresthesias or motor deficits. He states he sees some spots in his vision. PFSH Past Medical History Hx Anticoagulant Therapy: Yes (asa) Asthma: Yes Cardiac Catheterization: Yes (rca stent) Cardiovascular Problems: Yes ([place], HTN) COPD: Yes Diminished Hearing: No Hypertension: Yes Musculoskeletal: Yes (back pain) Neurologic: Yes (neuropathy) Respiratory: Yes (COPD) Myocardial Infarction: Yes (x3) Past Surgical History Abdominal Surgery: Yes (unmbelical hernia repair) Other Surgery: Yes (R achellies tendon) Social History Alcohol Use: Yes Tobacco Use: Yes (1 pack per day) Substance Use: No Allergies-Medications (Allergen,Severity, Reaction): Coded Allergies: cortisone (Unverified Allergy, Severe, Swelling, 03/08/17) dichloralphenazone (Unverified Allergy, Severe, 03/08/17) erythromycin base (Unverified Allergy, Severe, 03/08/17) ibuprofen (Unverified Allergy, Severe, 03/08/17) isometheptene (Unverified Allergy, Severe, 03/08/17) Reported Meds & Prescriptions Reported Meds & Active Scripts Active Mupirocin Topical (Mupirocin) 2 % Oint 1 Applic TOPICAL BID Flexeril (Cyclobenzaprine HCl) 10 Mg Tab 10 Mg PO TID Keflex (Cephalexin) 500 Mg Capsule 500 Mg PO TID Tylenol (Acetaminophen) 325 Mg Tab 650 Mg PO Q6H PRN Naproxen 500 Mg Tab 500 Mg PO BID 7 Days Lyrica (Pregabalin) 150 Mg Cap 150 Mg PO BID 7 Days Reported Metoprolol Tartrate 50 Mg Tab 50 Mg PO BID Lisinopril 20 Mg Tab 20 Mg PO DAILY Potassium Chloride Microencaps 20 Meq Tab 20 Meq PO DAILY Lasix (Furosemide) 40 Mg Tab 40 Mg PO DAILY Proair Respiclick Inh (Albuterol Sulfate) 90 Mcg/Act Aerp 1 Puff INH Q4H PRN Aspirin 81 Mg Chew 81 Mg CHEW DAILY Review of Systems Except as stated in HPI: all other systems reviewed are Neg Physical Exam Narrative GENERAL: Well-developed, well-nourished, comfortable, no apparent distress. SKIN: Focused skin assessment warm/dry. No rash. HEAD: Atraumatic. Normocephalic. EYES: Pupils equal and round. No scleral icterus. No injection or drainage. ENT: No nasal bleeding or discharge. Mucous membranes pink and moist. NECK: Trachea midline. No JVD. No nuchal rigidity. CARDIOVASCULAR: Regular rate and rhythm. RESPIRATORY: No accessory muscle use. Clear to auscultation. Breath sounds equal bilaterally. GASTROINTESTINAL: Abdomen soft, non-tender, nondistended. MUSCULOSKELETAL: No obvious deformities. No clubbing. No cyanosis. No edema. NEUROLOGICAL: Awake and alert. No obvious cranial nerve deficits. Motor grossly within normal limits. Normal speech. No focal deficits. PSYCHIATRIC: Appropriate mood and affect; insight and judgment normal. Data Data Last Documented VS Vital Signs Date Time Temp Pulse Resp B/P (MAP) Pulse Ox O2 Delivery O2 Flow Rate FiO2 03/08/17 17:59 97 Room Air 03/08/17 17:29 98.3 92 17 Orders Orders Complete Blood Count With Diff (03/08/17 17:47) Comprehensive Metabolic Panel (03/08/17 17:47) Prothrombin Time / Inr (Pt) (03/08/17 17:47) Act Partial Throm Time (Ptt) (03/08/17 17:47) Iv Access Insert/Monitor (03/08/17 17:47) Ecg Monitoring (03/08/17 17:47) Oximetry (03/08/17 17:47) Sodium Chlor 0.9% 1000 Ml Inj (Ns 1000 M (03/08/17 17:47) Sodium Chloride 0.9% Flush (Ns Flush) (03/08/17 18:00) Electrocardiogram (03/08/17 17:47) Metoclopramide Inj (Reglan Inj) (03/08/17 18:00) Morphine Inj (Morphine Inj) (03/08/17 18:00) Clonidine (Catapres) (03/08/17 18:00) Labs Laboratory Tests Test 03/08/17 18:05 White Blood Count 7.5 TH/MM3 Red Blood Count 5.18 MIL/MM3 Hemoglobin 16.6 GM/DL Hematocrit 46.8 % Mean Corpuscular Volume 90.3 FL Mean Corpuscular Hemoglobin 31.9 PG Mean Corpuscular Hemoglobin Concent 35.4 % Red Cell Distribution Width 13.7 % Platelet Count 128 TH/MM3 Mean Platelet Volume 10.6 FL Neutrophils (%) (Auto) 67.8 % Lymphocytes (%) (Auto) 22.4 % Monocytes (%) (Auto) 7.0 % Eosinophils (%) (Auto) 2.0 % Basophils (%) (Auto) 0.8 % Neutrophils # (Auto) 5.1 TH/MM3 Lymphocytes # (Auto) 1.7 TH/MM3 Monocytes # (Auto) 0.5 TH/MM3 Eosinophils # (Auto) 0.2 TH/MM3 Basophils # (Auto) 0.1 TH/MM3 CBC Comment DIFF FINAL Differential Comment Prothrombin Time 10.7 SEC Prothromb Time International Ratio 1.0 RATIO Activated Partial Thromboplast Time 27.3 SEC Blood Urea Nitrogen 8 MG/DL Creatinine 0.88 MG/DL Random Glucose 87 MG/DL Total Protein 6.9 GM/DL Albumin 3.9 GM/DL Calcium Level 9.0 MG/DL Alkaline Phosphatase 55 U/L Aspartate Amino Transf (AST/SGOT) 33 U/L Alanine Aminotransferase (ALT/SGPT) 42 U/L Total Bilirubin 0.5 MG/DL Sodium Level 140 MEQ/L Potassium Level 4.2 MEQ/L Chloride Level 106 MEQ/L Carbon Dioxide Level 26.7 MEQ/L Anion Gap 7 MEQ/L Estimat Glomerular Filtration Rate 94 ML/MIN [facility] Medical Decision Making Medical Screen Exam Complete: Yes Emergency Medical Condition: Yes Medical Record Reviewed: Yes Differential Diagnosis Tension headache, cluster headache, migraine headache, SAH/meningitis/ encephalitis unlikely, hypertensive crisis, hypertensive urgency Narrative Course Initial vital signs show heart rate 92, blood pressure 213/112, pulse ox 99% on room air, oral temp of 98.3F. Patient was given a dose of clonidine, morphine, and Reglan and repeat blood pressure is 170/100. CBC is remarkable for platelets 128, otherwise unremarkable. CMP is unremarkable. Patient was given a dose of clonidine, morphine, and Reglan, and states he is feeling much better and would like to go home. He does not want to have a CAT scan of his head performed. He is not displaying any signs or symptoms of hypertensive crisis. He is stable for discharge home with outpatient follow-up with his primary care physician this week. He was informed on when to return to the emergency department. He verbalizes understanding and agreement with plan. Diagnosis Primary Impression: Elevated blood pressure reading Additional Impression: Headache Qualified Codes: R51 - Headache Referrals: Primary Care Physician 3 days Additional Instructions: Follow-up with your primary care physician this week. Return to the emergency department for worsening symptoms or any other concerns. Disposition: 01 DISCHARGE HOME Condition: Stable Quintin Zaidi MD Mar 08, 2017 17:51
[2017-03-08 17:59] VITALS: O2SAT 97
[2017-03-08] MEDS ORDERED: METOCLOPRAMIDE HCL 10 MG/2 ML VIAL IV PUSH ONE (18:00)
[2017-03-08] MEDS ORDERED: SODIUM CHLORIDE 0.9% FLUSH 10 ML FLUSH IV FLUSH PRN (18:00)
[2017-03-08] MEDS ORDERED: cloNIDine HCL 0.1 MG TAB PO ONE (18:00)
[2017-03-08] MEDS ORDERED: MORPHINE SULFATE 2 MG/ML INJ IV PUSH ONE (18:00)
[2017-03-08 18:27] LABS: AUTOMATED NEUTROPHIL # 5.1 TH/MM3 (1.8-7.7); BASOPHIL # 0.1 TH/MM3 (0-0.2); BASOPHIL % 0.8 % (0.0-2.0); EOSINOPHIL # 0.2 TH/MM3 (0-0.4); HEMATOCRIT 46.8 % (39.0-51.0); HEMO FLAGS DIFF FINAL; LYMPH % 22.4 % (9.0-44.0); LYMPHOCYTE # 1.7 TH/MM3 (1.0-4.8); MEAN CELL VOLUME 90.3 FL (80.0-100.0); MEAN CORPUSCULAR HEMOGLOBIN 31.9 PG (27.0-34.0); MEAN CORPUSCULAR HGB CONC 35.4 % (32.0-36.0); NEUT % 67.8 % (16.0-70.0); PLATELET COUNT 128 TH/MM3 (150-450); RED BLOOD COUNT 5.18 MIL/MM3 (4.50-5.90); RED CELL DISTRIBUTION WIDTH 13.7 % (11.6-17.2); WHITE BLOOD COUNT 7.5 TH/MM3 (4.0-11.0)
[2017-03-08 18:44] LABS: ANION GAP 7 MEQ/L (5-15); AST (GOT) 33 U/L (15-37); BICARBONATE 26.7 MEQ/L (21.0-32.0); BLOOD UREA NITROGEN 8 MG/DL (7-18); CHLORIDE 106 MEQ/L (98-107); GLOMERULAR FILTRATION RATE 94 ML/MIN (>89); SODIUM (NA) 140 MEQ/L (136-145)
[2017-03-08 18:45] LABS: ALKALINE PHOSPHATASE 55 U/L (45-117); ALT (GPT) 42 U/L (12-78); POTASSIUM 4.2 MEQ/L (3.5-5.1); TOTAL BILIRUBIN ADULT 0.5 MG/DL (0.2-1.0)
[2017-03-08 18:47] LABS: PROTHROMBIN TIME - PATIENT 10.7 SEC (9.8-11.6)
[2017-03-08 18:48] LABS: APTT (PATIENT) 27.3 SEC (24.3-30.1)
--- NOTE | 2017-03-09 05:10 | EKG ---
Date Performed: 03/08/2017 Time Performed: 18:30:37 PTAGE: 46 years EKG: Sinus rhythm INTRAVENTRICULAR CONDUCTION DELAY INFERIOR MYOCARDIAL INFARCTION ABNORMAL ECG No significant change from prior electrocardiogram. PREVIOUS TRACING : 12/13/2016 23.31 DOCTOR: Kendell Jenkins Interpretating Date/Time 03/09/2017 05:08:56
== END 2017-03-08 19:18 | disposition home or self-care (01) ==
LOC: NEPD 17:27
DX: I10 Essential (primary) hypertension (principal); I25.2 Old myocardial infarction; F17.200 Nicotine dependence, unspecified, uncomplicated; J44.9 Chronic obstructive pulmonary disease, unspecified; Z79.899 Other long term (current) drug therapy
CPT/HCPCS: 80053; 85025; 85610; 85730; 93005; 96374; 96375; 99285; J2270; J2765; J7030

== ENCOUNTER 2017-03-15 20:22 | Emergency (ER) | payer SELFPAY ==
[2017-03-15 20:23] VITALS: BP 159/86; PULSE 98; RESP 18; TEMP 97.8; O2SAT 98
--- NOTE | 2017-03-15 21:35 | PD ---
HPI Chief Complaint: Pain: Acute or Chronic Time Seen by Provider: 21:11 Travel History International Travel<30 days: No Contact w/Intl Traveler<30days: No Traveled to known affect area: No History of Present Illness HPI 46 YO M with PMH of HTN, CAD, COPD, current smoker presents to the ED for evaluation of 3-4 days of "unbearable. 01/18" pain in the BLE. Described as tearing sensation behind both knees, right worse than left. Also complains of sharp, shooting pain emanating from the groin and traveling down the inner aspect of the right lower extremity. Also complains of pain with walking that is improved by resting. He denies saddle anesthesia, urinary incontinence. He treated with ice and heat and Valium with no improvement of his symptoms. He states this pain is not similar to his sciatica pain. He endorses ambulation, drove himself to the ED. No PCP. PFSH Past Medical History Hx Anticoagulant Therapy: Yes (asa) Asthma: Yes Cardiac Catheterization: Yes (rca stent) Cardiovascular Problems: Yes (HTN) COPD: Yes Diminished Hearing: No Hypertension: Yes Musculoskeletal: Yes (back pain) Neurologic: Yes (neuropathy) Respiratory: Yes (COPD) Myocardial Infarction: Yes (x3) Tetanus Vaccination: < 5 Years Past Surgical History Abdominal Surgery: Yes (unmbelical hernia repair) Other Surgery: Yes (R achellies tendon) Social History Alcohol Use: Yes Tobacco Use: Yes (1 pack per day) Substance Use: No Allergies-Medications (Allergen,Severity, Reaction): Coded Allergies: cortisone (Unverified Allergy, Severe, Swelling, 03/15/17) dichloralphenazone (Unverified Allergy, Severe, 03/15/17) erythromycin base (Unverified Allergy, Severe, 03/15/17) ibuprofen (Unverified Allergy, Severe, 03/15/17) isometheptene (Unverified Allergy, Severe, 03/15/17) Reported Meds & Prescriptions Reported Meds & Active Scripts Active Tylenol (Acetaminophen) 325 Mg Tab 650 Mg PO Q6H PRN Naproxen 500 Mg Tab 500 Mg PO BID 7 Days Lyrica (Pregabalin) 150 Mg Cap 150 Mg PO BID 7 Days Reported Metoprolol Tartrate 50 Mg Tab 50 Mg PO BID Lisinopril 20 Mg Tab 20 Mg PO DAILY Potassium Chloride Microencaps 20 Meq Tab 20 Meq PO DAILY Lasix (Furosemide) 40 Mg Tab 40 Mg PO DAILY Proair Respiclick Inh (Albuterol Sulfate) 90 Mcg/Act Aerp 1 Puff INH Q4H PRN Aspirin 81 Mg Chew 81 Mg CHEW DAILY Review of Systems Except as stated in HPI: all other systems reviewed are Neg Physical Exam Narrative GENERAL: Well-nourished, well-developed, obese white male in no acute distress. SKIN: Focused skin assessment warm/dry. HEAD: Normocephalic. EYES: No scleral icterus. No injection or drainage. NECK: Supple, trachea midline. No JVD or lymphadenopathy. CARDIOVASCULAR: Regular rate and rhythm without murmurs, gallops, or rubs. RESPIRATORY: Breath sounds equal bilaterally. No accessory muscle use. GASTROINTESTINAL: Abdomen soft, non-tender, nondistended. MUSCULOSKELETAL: No cyanosis, or edema. NEUROLOGICAL: Awake and alert. Cranial nerves II through XII intact. Motor and sensory grossly within normal limits. Five out of 5 muscle strength in muscle groups of the upper extremities. Patient refuses to perform strength testing in the bilateral lower extremities although he is moving the extremities spontaneously. Normal speech. FOCUSED LOWER EXTREMITY EXAM: Palpable DP pulses bilaterally. Legs are cool and pale as compared to the skin of the upper extremities. Patient is able to wiggle the toes. He moves extremities spontaneously. He endorses tenderness along the entire surface of the lower extremities though he gestures and touches his own legs without evidence of pain. BACK: Nontender without obvious deformity. No CVA tenderness. Data Data Last Documented VS Vital Signs Date Time Temp Pulse Resp B/P (MAP) Pulse Ox O2 Delivery O2 Flow Rate FiO2 03/15/17 23:56 86 18 142/83 (102) 94 Room Air 03/15/17 20:23 97.8 Orders Orders Knee, Ltd (1 Or 2vws) (03/15/17 ) Knee, Ltd (1 Or 2vws) (03/15/17 ) Us Leg Venous Doppler (03/15/17 ) Iv Access Insert/Monitor (03/15/17 21:35) Ecg Monitoring (03/15/17 21:35) Oximetry (03/15/17 21:35) Sodium Chloride 0.9% Flush (Ns Flush) (03/15/17 21:45) Hydromorphone Pf Inj (Dilaudid Pf Inj) (03/15/17 21:45) Cta Runoff W Iv Contrast W 3d (03/15/17 ) Complete Blood Count With Diff (03/15/17 21:35) Basic Metabolic Panel (Bmp) (03/15/17 21:35) Coag Profile (03/15/17 21:35) Iohexol 350 Inj (Omnipaque 350 Inj) (03/15/17 23:55) Ed Discharge Order (03/16/17 02:23) Labs Laboratory Tests Test 03/15/17 22:10 White Blood Count 7.1 TH/MM3 Red Blood Count 5.12 MIL/MM3 Hemoglobin 15.6 GM/DL Hematocrit 45.8 % Mean Corpuscular Volume 89.4 FL Mean Corpuscular Hemoglobin 30.5 PG Mean Corpuscular Hemoglobin Concent 34.1 % Red Cell Distribution Width 13.3 % Platelet Count 117 TH/MM3 Mean Platelet Volume 9.8 FL Neutrophils (%) (Auto) 60.4 % Lymphocytes (%) (Auto) 25.8 % Monocytes (%) (Auto) 9.5 % Eosinophils (%) (Auto) 3.6 % Basophils (%) (Auto) 0.7 % Neutrophils # (Auto) 4.3 TH/MM3 Lymphocytes # (Auto) 1.8 TH/MM3 Monocytes # (Auto) 0.7 TH/MM3 Eosinophils # (Auto) 0.3 TH/MM3 Basophils # (Auto) 0.0 TH/MM3 CBC Comment DIFF FINAL Differential Comment Prothrombin Time 10.0 SEC Prothromb Time International Ratio 1.0 RATIO Activated Partial Thromboplast Time 27.1 SEC Blood Urea Nitrogen 11 MG/DL Creatinine 1.01 MG/DL Random Glucose 108 MG/DL Calcium Level 8.5 MG/DL Sodium Level 141 MEQ/L Potassium Level 3.7 MEQ/L Chloride Level 107 MEQ/L Carbon Dioxide Level 26.3 MEQ/L Anion Gap 8 MEQ/L Estimat Glomerular Filtration Rate 80 ML/MIN MDM Medical Decision Making Medical Screen Exam Complete: Yes Emergency Medical Condition: Yes Differential Diagnosis PVD versus claudication versus DVT versus OA versus bursitis versus other Narrative Course 46 YO M with PMH of HTN, CAD, COPD, current smoker presents to the ED for evaluation of 3-4 days of "unbearable. 01/18" pain in the BLE. Described as tearing sensation behind both knees, right worse than left. Also complains of sharp, shooting pain emanating from the groin and traveling down the inner aspect of the right lower extremity. Also complains of pain with walking that is improved by resting. He denies saddle anesthesia, urinary incontinence. Vitals reviewed. Patient is hypertensive on presentation. Physical exam reveals palpable DP pulses bilaterally. The legs are cool and pale. Patient is able to wiggle her toes and move the extremity spontaneously. He refuses to perform strength testing stating that he is in too much pain. However he does gesture and touches on legs without evidence of pain. Bilateral knee x-rays are unremarkable. Ultrasound of the right lower extremity reveals no evidence of DVT. CTA with runoff ordered and pending. The patient is signed out to Dr. Ng at end of shift. Please see her note for disposition. Tabatha Hubbard Mar 15, 2017 21:34
[2017-03-15] MEDS ORDERED: SODIUM CHLORIDE 0.9% FLUSH 10 ML FLUSH IV FLUSH PRN (21:45)
[2017-03-15] MEDS ORDERED: HYDROmorphone HCL PF 1 MG/ML VIAL IVS ONE (21:45)
--- NOTE | 2017-03-15 22:04 | RADRPT ---
EXAM DATE/TIME: 03/15/2017 21:01 [facility] COMPARISON: No previous studies available for comparison. INDICATIONS : Right leg pain. MEDICAL HISTORY : Hypertension. Myocardial infarction. Neuropathy. COPD. Asthma. Back pain. SURGICAL HISTORY : Umbilical hernia repair. Cardiac catheterization. Right achellies tendon surgery. ENCOUNTER: Initial ACUITY: 4 - 6 days PAIN SCORE: 7/10 LOCATION: Right leg. TECHNIQUE: Venous ultrasound of the leg was performed from the inguinal ligament to the proximal calf. Real-elizabeth e, color Doppler and spectral tracing, compression and augmentation techniques were used. FINDINGS: There is normal compressibility of the deep venous system from the inguinal region to the proximal ca lf. No echogenic clot is seen in the lumen of the common femoral, femoral, popliteal, and posterior tibial veins. There is a normal response of the venous system to proximal and distal augmentation an d respiration. CONCLUSION: There is no evidence of deep venous thrombosis of the right lower extremity. Maverick Ritchie MD on March 15, 2017 at 21:54 Board Certified Radiologist. This report was verified electronically.
[2017-03-15 22:57] LABS: AUTOMATED NEUTROPHIL # 4.3 TH/MM3 (1.8-7.7); BASOPHIL % 0.7 % (0.0-2.0); EOSINOPHIL # 0.3 TH/MM3 (0-0.4); EOSINOPHIL % 3.6 % (0.0-4.0); HEMATOCRIT 45.8 % (39.0-51.0); HEMO FLAGS DIFF FINAL; LYMPH % 25.8 % (9.0-44.0); LYMPHOCYTE # 1.8 TH/MM3 (1.0-4.8); MEAN CELL VOLUME 89.4 FL (80.0-100.0); MEAN CORPUSCULAR HEMOGLOBIN 30.5 PG (27.0-34.0); MEAN CORPUSCULAR HGB CONC 34.1 % (32.0-36.0); MONO % 9.5 % (0.0-8.0); NEUT % 60.4 % (16.0-70.0); PLATELET COUNT 117 TH/MM3 (150-450); RED BLOOD COUNT 5.12 MIL/MM3 (4.50-5.90); RED CELL DISTRIBUTION WIDTH 13.3 % (11.6-17.2); WHITE BLOOD COUNT 7.1 TH/MM3 (4.0-11.0)
[2017-03-15 23:05] LABS: APTT (PATIENT) 27.1 SEC (24.3-30.1)
--- NOTE | 2017-03-15 23:07 | PD ---
Physical Exam Narrative General: The patient is a well-developed well-nourished male in no acute distress. Head and Neck exam: Head is normocephalic atraumatic. Eyes: EOMI, pupils are equal round and reactive to light. Nose: Midline septum with pink mucous membranes Mouth: Dentition unremarkable. Moist mucus membranes. Posterior oropharynx is not erythematous. No tonsillar hypertrophy. Uvula midline. Airway patent. Neck: No palpable lymphadenopathy. No nuchal rigidity. No thyromegaly. Cardiovascular: Regular rate and rhythm without murmurs, gallops, or rubs. Lungs: Clear to auscultation bilaterally. No wheezes, rhonchi, or rales. Extremities: No clubbing, cyanosis, or edema. 2+ pulses in all 4 extremities. No dusky coloration to his feet. The patient has less than 3 second capillary refill of bilateral digits on the feet. Neurologic Exam: Grossly nonfocal. Skin Exam: Skin is warm and dry. Data Data Last Documented VS Vital Signs Date Time Temp Pulse Resp B/P (MAP) Pulse Ox O2 Delivery O2 Flow Rate FiO2 03/15/17 23:56 86 18 142/83 (102) 94 Room Air 03/15/17 20:23 97.8 Orders Orders Knee, Ltd (1 Or 2vws) (03/15/17 ) Knee, Ltd (1 Or 2vws) (03/15/17 ) Us Leg Venous Doppler (03/15/17 ) Iv Access Insert/Monitor (03/15/17 21:35) Ecg Monitoring (03/15/17 21:35) Oximetry (03/15/17 21:35) Sodium Chloride 0.9% Flush (Ns Flush) (03/15/17 21:45) Hydromorphone Pf Inj (Dilaudid Pf Inj) (03/15/17 21:45) Cta Runoff W Iv Contrast W 3d (03/15/17 ) Complete Blood Count With Diff (03/15/17 21:35) Basic Metabolic Panel (Bmp) (03/15/17 21:35) Coag Profile (03/15/17 21:35) Iohexol 350 Inj (Omnipaque 350 Inj) (03/15/17 23:55) Ed Discharge Order (03/16/17 02:23) Labs Laboratory Tests Test 03/15/17 22:10 White Blood Count 7.1 TH/MM3 Red Blood Count 5.12 MIL/MM3 Hemoglobin 15.6 GM/DL Hematocrit 45.8 % Mean Corpuscular Volume 89.4 FL Mean Corpuscular Hemoglobin 30.5 PG Mean Corpuscular Hemoglobin Concent 34.1 % Red Cell Distribution Width 13.3 % Platelet Count 117 TH/MM3 Mean Platelet Volume 9.8 FL Neutrophils (%) (Auto) 60.4 % Lymphocytes (%) (Auto) 25.8 % Monocytes (%) (Auto) 9.5 % Eosinophils (%) (Auto) 3.6 % Basophils (%) (Auto) 0.7 % Neutrophils # (Auto) 4.3 TH/MM3 Lymphocytes # (Auto) 1.8 TH/MM3 Monocytes # (Auto) 0.7 TH/MM3 Eosinophils # (Auto) 0.3 TH/MM3 Basophils # (Auto) 0.0 TH/MM3 CBC Comment DIFF FINAL Differential Comment Prothrombin Time 10.0 SEC Prothromb Time International Ratio 1.0 RATIO Activated Partial Thromboplast Time 27.1 SEC Blood Urea Nitrogen 11 MG/DL Creatinine 1.01 MG/DL Random Glucose 108 MG/DL Calcium Level 8.5 MG/DL Sodium Level 141 MEQ/L Potassium Level 3.7 MEQ/L Chloride Level 107 MEQ/L Carbon Dioxide Level 26.3 MEQ/L Anion Gap 8 MEQ/L Estimat Glomerular Filtration Rate 80 ML/MIN [facility] Medical Record Reviewed: Yes Supervised Visit with ELFEGO: No Interpretation(s) Last Impressions Lower Extremity Ultrasound 03/15/17 0000 Signed Impressions: Service Date/Time: Wednesday, March 15, 2017 21:01 - CONCLUSION: There is no evidence of deep venous thrombosis of the right lower extremity. Maverick Ritchie MD Knee X-Ray 03/15/17 0000 Signed Impressions: Service Date/Time: Wednesday, March 15, 2017 21:38 - CONCLUSION: 1. Mild degenerative changes involving the patellofemoral and femorotibial joints. 2. No acute fracture or dislocation. 3. No knee joint effusion. Maverick Ritchie MD Knee X-Ray 03/15/17 0000 Signed Impressions: Service Date/Time: Wednesday, March 15, 2017 21:33 - CONCLUSION: 1. Mild degenerative changes involving the patellofemoral and medial femoral tibial joints. 2. No acute fracture or dislocation. 3. No knee joint effusion. Maverick Ritchie MD Aorta w/Runoff CTA 03/15/17 0000 Signed Impressions: Service Date/Time: Thursday, March 16, 2017 00:28 - CONCLUSION: Mild atherosclerotic change with no evidence of stenosis or aneurysm. Bill Garcia MD Narrative Course During the course of the patients emergency department visit, the patients history, examination, and differential diagnosis were reviewed with the patient. The patient was placed on a cardiac cath lab technologist with oximetry and frequent blood pressure monitoring. The patient had IV access obtained and blood work sent for analysis. The patient was initially seen by Tabatha, the physician clinical trials assistant. Please see her complete history and physical. The patient's case was checked out to me at the conclusion of her shift. She was concerned about the possibility of claudication as the cause of the patient's bilateral lower extremity pain. The patient was initially provided hydromorphone 1 mg IV for pain. The patients laboratory studies were reviewed and remarkable for white count 7.1 , hemoglobin 15.6, platelets 117 with 9.5 monos, basic metabolic profile is remarkable for glucose of 108 Radiology studies were reviewed and remarkable for bilateral knee x-rays revealed degenerative changes, no acute effusion, or fracture. Ultrasound of the right lower extremity reveals no evidence of DVT. A CT a with runoff of the lower extremities was ordered by Tabatha. CTA shows mild atherosclerotic disease, no stenosis or aneurysm. The patient is resting comfortably and feels better, is alert and in no distress. The patients results and examination findings were discussed with the patient. The repeat examination is unremarkable and benign. The history, exam, diagnostic testing, and current condition do not suggest any significant pathology to warrant further testing, continued ED treatment, admission, or surgical evaluation at this point. The vital signs have been stable. The patient does not have uncontrollable pain, intractable vomiting, or other significant symptoms. The patient's condition is stable and appropriate for discharge. The patient will pursue further outpatient evaluation with a primary care physician or other designated or consulting physician as indicated in the discharge instructions. The patient expressed understanding and was agreeable with this plan. Diagnosis Primary Impression: Bilateral leg pain Referrals: Primary Care Physician 3 days Patient Instructions: General Instructions, Leg Pain (ED) Disposition: 01 DISCHARGE HOME Condition: Stable Ruth Ng MD Mar 15, 2017 23:07
--- NOTE | 2017-03-15 23:09 | RADRPT ---
EXAM DATE/TIME: 03/15/2017 21:33 [facility] COMPARISON: No previous studies available for comparison. INDICATIONS : Entire right knee pain. No known injury. MEDICAL HISTORY : Cardiovascular disease. Hypertension. Chronic obstructive pulmonary disease SURGICAL HISTORY : Coronary artery stent. ENCOUNTER: Initial ACUITY: 1 day PAIN SCORE: 5/10 LOCATION: Right knee FINDINGS: Mild degenerative changes are noted involving the patellofemoral and medial femorotibial joints. No a cute fracture or dislocation is noted. No knee joint effusion is noted. CONCLUSION: 1. Mild degenerative changes involving the patellofemoral and medial femoral tibial joints. 2. No acute fracture or dislocation. 3. No knee joint effusion. Maverick Ritchie MD on March 15, 2017 at 23:07 Board Certified Radiologist. This report was verified electronically.
--- NOTE | 2017-03-15 23:11 | RADRPT ---
EXAM DATE/TIME: 03/15/2017 21:38 [facility] COMPARISON: No previous studies available for comparison. INDICATIONS : Entire left knee pain. No known injury. MEDICAL HISTORY : Cardiovascular disease. Hypertension. Chronic obstructive pulmonary disease SURGICAL HISTORY : Coronary artery stent. ENCOUNTER: Initial ACUITY: 1 day PAIN SCORE: 5/10 LOCATION: Left knee FINDINGS: Mild degenerative changes involving the patellofemoral and medial femorotibial joints. No acute fract ure or dislocation is noted. No knee joint effusion is noted. CONCLUSION: 1. Mild degenerative changes involving the patellofemoral and femorotibial joints. 2. No acute fracture or dislocation. 3. No knee joint effusion. Maverick Ritchie MD on March 15, 2017 at 23:09 Board Certified Radiologist. This report was verified electronically.
[2017-03-15 23:15] LABS: BICARBONATE 26.3 MEQ/L (21.0-32.0); POTASSIUM 3.7 MEQ/L (3.5-5.1)
[2017-03-15] MEDS ORDERED: IOHEXOL 350 MG/ML 10 ML VIAL (for RAD DIAG) IVCONTRAST ONE (23:55)
[2017-03-15 23:56] VITALS: BP 142/83; PULSE 86; RESP 18; O2SAT 94
--- NOTE | 2017-03-16 02:17 | RADRPT ---
EXAM DATE/TIME: 03/16/2017 00:28 [facility] COMPARISON: No previous studies available for comparison. INDICATIONS : Lower extremity pain. IV CONTRAST: 100 cc Omnipaque 350 (iohexol) IV RADIATION DOSE: 6.49 CTDIvol (mGy) MEDICAL HISTORY : Hypertension. Cardiovascular disease SURGICAL HISTORY : Umbilical hernia repair. ENCOUNTER: Initial ACUITY: 1 day PAIN SCALE: 5/10 LOCATION: Bilateral legs TECHNIQUE: Volumetric scanning was performed using a multi-row detector CT scanner. The data was post processed with a variety of visualization algorithms including full volume maximum intensity projection, multi -planar sliding thin slab reformation, curved planar reformation, and surface rendering techniques. Using automated exposure control and adjustment of the mA and/or kV according to patient size, radiat ion dose was kept as low as reasonably achievable to obtain optimal diagnostic quality images. DICO M format image data is available electronically for review and comparison. FINDINGS: ABDOMINAL AORTA: The lumen is smooth without significant narrowing or aneurysmal dilation. Atherosclerotic changes are present with calcification. The proximal celiac and superior mesenteric arteries are patent and norm al in diameter. There are solitary renal arteries bilaterally without gross abnormality. BIFURCATION: Normal. RIGHT PELVIS: The right common iliac, internal iliac, and external iliac vessels are patent without luminal irregul arity. LEFT PELVIS: The left common iliac, internal iliac, and external iliac vessels are patent and without luminal irre gularity. RIGHT THIGH: The superficial femoral and profunda vessels are patent without luminal irregularity. LEFT THIGH: The superficial femoral and profunda vessels are patent without luminal irregularity. RIGHT KNEE: The distal femoral and popliteal arteries are patent without luminal irregularity. LEFT KNEE: The distal femoral and popliteal arteries are patent without luminal irregularity. RIGHT LEG: The trifurcation is intact. LEFT LEG: The trifurcation is intact. CONCLUSION: Mild atherosclerotic change with no evidence of stenosis or aneurysm. Bill Garcia MD on March 16, 2017 at 2:12 Board Certified Radiologist. This report was verified electronically.
== END 2017-03-16 03:41 | disposition home or self-care (01) ==
LOC: NEPE 20:22
DX: M79.605 Pain in left leg (principal); M79.604 Pain in right leg; M17.11 Unilateral primary osteoarthritis, right knee; I10 Essential (primary) hypertension; I25.10 Atherosclerotic heart disease of native coronary artery without angina pectoris; J44.9 Chronic obstructive pulmonary disease, unspecified; G62.9 Polyneuropathy, unspecified; I25.2 Old myocardial infarction; F17.200 Nicotine dependence, unspecified, uncomplicated
CPT/HCPCS: 73560; 75635; 80048; 85025; 85610; 85730; 93971; 96374; 99285; J1170; Q9967